=== PATIENT | male | born 1965 ===

== ENCOUNTER 2020-02-05 13:03 | Outpatient (REF) | payer OTHER, SELFPAY | END 2020-02-05 13:04 | disposition home or self-care (01) | LOC: HO.LAB 13:03 | PROVIDERS: Visit Provider Internal Medicine | DX: Z20.828 Contact with and (suspected) exposure to other viral communicable diseases (principal) | CPT/HCPCS: C9803; U0003 ==

== ENCOUNTER 2020-02-23 15:57 | Outpatient (REF) | payer OTHER, SELFPAY | END 2020-02-23 15:58 | disposition home or self-care (01) | LOC: HO.LAB 15:57 | PROVIDERS: PCP Internal Medicine; Visit Provider Internal Medicine | DX: Z20.828 Contact with and (suspected) exposure to other viral communicable diseases (principal) | CPT/HCPCS: C9803; U0003 ==

== ENCOUNTER 2020-03-08 13:21 | Outpatient (REF) | payer OTHER, SELFPAY | END 2020-03-08 13:22 | disposition home or self-care (01) | LOC: HO.LAB 13:21 | PROVIDERS: PCP Internal Medicine; Visit Provider Internal Medicine | DX: Z20.828 Contact with and (suspected) exposure to other viral communicable diseases (principal) | CPT/HCPCS: C9803; U0003 ==

== ENCOUNTER 2020-03-21 08:07 | Outpatient (REF) | payer OTHER, SELFPAY | END 2020-03-21 08:08 | disposition home or self-care (01) | LOC: HO.LAB 08:07 | PROVIDERS: Visit Provider Internal Medicine | DX: Z20.822 Contact with and (suspected) exposure to COVID-19 (principal) | CPT/HCPCS: 36415; C9803; U0003 ==

== ENCOUNTER 2020-04-02 07:51 | Outpatient (REF) | payer OTHER, SELFPAY | END 2020-04-02 07:52 | disposition home or self-care (01) | LOC: HO.LAB 07:51 | PROVIDERS: PCP Internal Medicine; Visit Provider Internal Medicine | DX: Z20.822 Contact with and (suspected) exposure to COVID-19 (principal) | CPT/HCPCS: 36415; C9803; U0003 ==

== ENCOUNTER 2020-05-10 15:13 | Outpatient (REF) | payer OTHER, SELFPAY | END 2020-05-10 15:14 | disposition home or self-care (01) | LOC: HO.LAB 15:13 | PROVIDERS: Visit Provider Internal Medicine | DX: Z20.822 Contact with and (suspected) exposure to COVID-19 (principal) | CPT/HCPCS: 36415; C9803; U0003; U0005 ==

== ENCOUNTER 2020-05-24 14:53 | Outpatient (REF) | payer OTHER, SELFPAY | END 2020-05-24 14:54 | disposition home or self-care (01) | LOC: HO.LAB 14:53 | PROVIDERS: Visit Provider Internal Medicine | DX: Z20.822 Contact with and (suspected) exposure to COVID-19 (principal) | CPT/HCPCS: 36415; C9803; U0003; U0005 ==

== ENCOUNTER 2020-10-25 10:47 | Outpatient (REF) | payer OTHER, SELFPAY | END 2020-10-25 10:48 | disposition home or self-care (01) | LOC: HO.LAB 10:47 | PROVIDERS: PCP Internal Medicine; Visit Provider Internal Medicine | DX: Z20.822 Contact with and (suspected) exposure to COVID-19 (principal) | CPT/HCPCS: C9803; U0003; U0005 ==

== ENCOUNTER 2020-11-29 14:58 | Outpatient (REF) | payer OTHER, SELFPAY | END 2020-11-29 14:59 | disposition home or self-care (01) | LOC: HO.LAB 14:58 | PROVIDERS: PCP Internal Medicine; Visit Provider Internal Medicine | DX: Z20.822 Contact with and (suspected) exposure to COVID-19 (principal) | CPT/HCPCS: C9803; U0003; U0005 ==

== ENCOUNTER 2020-12-06 14:55 | Outpatient (REF) | payer OTHER, SELFPAY | END 2020-12-06 14:56 | disposition home or self-care (01) | LOC: HO.LAB 14:55 | PROVIDERS: PCP Internal Medicine; Visit Provider Internal Medicine | DX: Z20.822 Contact with and (suspected) exposure to COVID-19 (principal) | CPT/HCPCS: C9803; U0003; U0005 ==

== ENCOUNTER 2020-12-13 15:01 | Outpatient (REF) | payer OTHER, SELFPAY | END 2020-12-13 15:02 | disposition home or self-care (01) | LOC: HO.LAB 15:01 | PROVIDERS: PCP Internal Medicine; Visit Provider Internal Medicine | DX: Z20.822 Contact with and (suspected) exposure to COVID-19 (principal) | CPT/HCPCS: C9803; U0003; U0005 ==

== ENCOUNTER 2020-12-20 14:20 | Outpatient (REF) | payer OTHER, SELFPAY | END 2020-12-20 14:21 | disposition home or self-care (01) | LOC: HO.LAB 14:20 | PROVIDERS: PCP Internal Medicine; Visit Provider Internal Medicine | DX: Z20.822 Contact with and (suspected) exposure to COVID-19 (principal) | CPT/HCPCS: C9803; U0003; U0005 ==

== ENCOUNTER 2020-12-26 15:17 | Outpatient (REF) | payer OTHER, SELFPAY | END 2020-12-26 15:18 | disposition home or self-care (01) | LOC: HO.LAB 15:17 | PROVIDERS: PCP Internal Medicine; Visit Provider Internal Medicine | DX: Z20.822 Contact with and (suspected) exposure to COVID-19 (principal) | CPT/HCPCS: C9803; U0003; U0005 ==

== ENCOUNTER 2021-01-03 14:49 | Outpatient (REF) | payer OTHER, SELFPAY | END 2021-01-03 14:50 | disposition home or self-care (01) | LOC: HO.LAB 14:49 | PROVIDERS: PCP Internal Medicine; Visit Provider Internal Medicine | DX: Z20.822 Contact with and (suspected) exposure to COVID-19 (principal) | CPT/HCPCS: C9803; U0003; U0005 ==

== ENCOUNTER 2021-01-09 12:50 | Outpatient (REF) | payer OTHER, SELFPAY | END 2021-01-09 12:51 | disposition home or self-care (01) | LOC: HO.LAB 12:50 | PROVIDERS: PCP Internal Medicine; Visit Provider Internal Medicine | DX: Z20.822 Contact with and (suspected) exposure to COVID-19 (principal) | CPT/HCPCS: C9803; U0003; U0005 ==

== ENCOUNTER 2021-01-16 15:14 | Outpatient (REF) | payer OTHER, SELFPAY | END 2021-01-16 15:15 | disposition home or self-care (01) | LOC: HO.LAB 15:14 | PROVIDERS: Visit Provider Internal Medicine | DX: Z20.822 Contact with and (suspected) exposure to COVID-19 (principal) | CPT/HCPCS: C9803; U0003; U0005 ==

== ENCOUNTER 2021-01-24 14:54 | Outpatient (REF) | payer OTHER, SELFPAY | END 2021-01-24 14:55 | disposition home or self-care (01) | LOC: HO.LAB 14:54 | PROVIDERS: PCP Internal Medicine; Visit Provider Internal Medicine | DX: Z20.822 Contact with and (suspected) exposure to COVID-19 (principal) | CPT/HCPCS: C9803; U0003; U0005 ==

== ENCOUNTER 2021-01-30 13:27 | Outpatient (REF) | payer OTHER, SELFPAY | END 2021-01-30 13:28 | disposition home or self-care (01) | LOC: HO.LAB 13:27 | PROVIDERS: PCP Internal Medicine; Visit Provider Internal Medicine | DX: Z20.822 Contact with and (suspected) exposure to COVID-19 (principal) | CPT/HCPCS: C9803; U0003; U0005 ==

== ENCOUNTER 2021-02-07 14:50 | Outpatient (REF) | payer OTHER, SELFPAY | END 2021-02-07 14:51 | disposition home or self-care (01) | LOC: HO.LAB 14:50 | PROVIDERS: PCP Internal Medicine; Visit Provider Internal Medicine | DX: Z20.822 Contact with and (suspected) exposure to COVID-19 (principal) | CPT/HCPCS: C9803; U0003; U0005 ==

== ENCOUNTER 2021-02-14 15:11 | Outpatient (REF) | payer OTHER, SELFPAY | END 2021-02-14 15:12 | disposition home or self-care (01) | LOC: HO.LAB 15:11 | PROVIDERS: Visit Provider Internal Medicine | DX: Z20.822 Contact with and (suspected) exposure to COVID-19 (principal) | CPT/HCPCS: C9803; U0003; U0005 ==

== ENCOUNTER 2022-01-12 15:06 | Outpatient (REF) | payer OTHER, SELFPAY ==
--- NOTE | ~2022-01-12 | CT_ITS ---
EXAMINATION: CT CHEST SCREENING CLINICAL INFORMATION: Former smoker. 44 pack year history. Quit 1 year ago. COMPARISON: Previous chest x-ray most recent March 2018 TECHNIQUE: Multidetector volumetric CT imaging of the chest is performed without contrast using low dose technique. Additional 2D coronal and sagittal reformatted images and axial 3D maximum intensity projection (MIP) images are generated on the CT workstation. This CT examination was performed using dose optimization techniques as appropriate, variously including the following: *Automated exposure control *Adjustment of mA and/or kV according to patient size (this includes techniques or standardized protocols for targeted exams where dose is matched to indication/reason for exam; i.e. extremities or head) *Use of iterative reconstruction technique DLP: 59 mGy-cm FINDINGS: LUNGS: Mild paraseptal emphysema. 2 x 5 mm MEDIASTINUM: Small calcified left hilar and subcarinal mediastinal lymph nodes. No enlarged lymph nodes. Normal heart size. No pericardial effusion. Normal caliber thoracic aorta. CORONARY ARTERY CALCIFICATION: Mild. . PLEURA: There is no pleural effusion. No pleural mass or thickening. AXILLA: No lymphadenopathy. UPPER ABDOMEN: 1 cm low-attenuation lesion in the lateral segment of the left lobe of the liver. This may represent a cyst. OSSEOUS STRUCTURES: Mild degenerative changes of the spine. CT/CT lung screening IMPRESSION: 1. Mild paraseptal emphysema. Small calcified left hilar and mediastinal lymph nodes probably representing old granulomatous disease. Mild coronary artery calcification. 2. 1 cm low-attenuation lesion in the lateral segment of the left lobe of the liver. ASSESSMENT: Lung-RADS category 2: Benign RECOMMENDATION: Annual low-dose chest CT follow-up recommended.
== END 2022-01-12 15:07 | disposition home or self-care (01) ==
LOC: HO.CT 15:06
PROVIDERS: PCP Internal Medicine; Visit Provider Physician Assistant Medical
DX: Z12.2 Encounter for screening for malignant neoplasm of respiratory organs (principal); Z87.891 Personal history of nicotine dependence
CPT/HCPCS: 71271; G0296

== ENCOUNTER 2022-01-23 15:25 | Outpatient (REF) | payer OTHER, SELFPAY ==
--- NOTE | 2022-01-23 17:27 | PFT_ITS ---
FLOWS: FEV1 75% of predicted at 3.15 L. FVC 74% of predicted at 3.89 L. FEV1 to FVC ratio of 0.81. No bronchodilator response. LUNG VOLUMES: Total lung capacity 77% of predicted at 5.92 L. Residual volume 85% of predicted at 2.02 L. Slow vital capacity 74% of predicted at 3.90 L. Expiratory reserve volume 32% of predicted at 0.52 L. Diffusion capacity is mildly decreased, diffusion capacity corrects to normal after adjustment for alveolar ventilation. IMPRESSION: Moderate restrictive ventilatory defect with no bronchodilator response. Westley Delacruz MD AP/MODL / [id number]
== END 2022-01-23 15:26 | disposition home or self-care (01) ==
LOC: HO.RESP 15:25
PROVIDERS: PCP Internal Medicine; Visit Provider Internal Medicine Pulmonary Disease
DX: J44.9 Chronic obstructive pulmonary disease, unspecified (principal)
CPT/HCPCS: 94060; 94727; 94729

== ENCOUNTER 2022-05-01 06:08 | Day surgery (SDC) | payer OTHER, SELFPAY ==
[2022-05-01 06:14] VITALS: BMI 28.0
[2022-05-01 06:28] VITALS: BP 138/80; PULSE 50; RESP 16; TEMP 36.1; O2SAT 99
--- NOTE | 2022-05-01 07:21 | P.CONAN_ITS ---
HPI - Anesthesia Eval Consult details Narrative: 56 yr male for colon polyp screen [facility] Active Problems Active Problems: All Active Problems (Updated 02/19/22 @ 15:53 by Westley Delacruz MD) Pulmonary emphysema (Acute) Preop pulmonary/respiratory exam (Acute) Personal history of nicotine dependence (Acute) CAD (coronary artery disease) (Acute) History of colon polyps (Acute) Past Medical History Medical History (Updated 02/19/22 @ 15:53 by Westley Delacruz MD) Asthma BPH (benign prostatic hyperplasia) CAD (coronary artery disease) DUVAL (dyspnea on exertion) Elevated cholesterol Gout History of colon polyps Hx of myocardial infarction Hx of seasonal allergies Hx of syphilis Hypertension IFG (impaired fasting glucose) Major depression Personal history of nicotine dependence Family History Family History (Updated 12/11/21 @ 14:47 by Shanique Hong [facility]) Maternal Grandmother Colon cancer Family history of problems with anesthesia: No Surgical History Surgical History (Updated 01/12/22 @ 14:59 by Morena Hoyt PA-C) History of colonoscopy History of heart artery stent History of Problems with Anesthesia: No Social History Social History (Updated 01/12/22 @ 14:56 by Morena Hoyt PA-C) Household Members Other:: mother Alcohol intake: current Alcohol intake frequency: holidays/special occasions only Patient Tobacco Use Status: Former Tobacco user Quit Date: 11/07/2020 Tobacco use type: Cigarette Years Smoked: (former smoker - onset 12, 1ppd x 43yrs, 40pyh, quit 10/2020) Use of substances other than those prescribed or required for medical reasons: No Are you DNR?: No Advance Directives: No Advance Directives Information Provided: Yes Advance Directives on File: No Meds Allergies Allergy/AdvReac Type Severity Reaction Status Date / Time No Known Allergies Allergy Verified 02/19/22 14:54 [No Known Allergies*] Home Medications Medication Instructions Recorded Confirmed Last Taken Type allopurinol 300 mg tablet 300 mg PO DAILY 12/11/21 05/01/22 05/01/22 History aspirin 81 mg tablet,delayed 81 mg PO DAILY 12/11/21 05/01/22 04/29/22 History release clopidogrel 75 mg tablet 75 mg PO DAILY 12/11/21 05/01/22 04/27/22 History loratadine 10 mg tablet 10 mg PO DAILY PRN Allergy Symptoms 12/11/21 05/01/22 04/30/22 History metoprolol tartrate 25 mg tablet 25 mg PO BID 12/11/21 05/01/22 05/01/22 History rosuvastatin 5 mg tablet 5 mg PO BEDTIME 12/11/21 05/01/22 04/30/22 History terbinafine HCl 250 mg tablet 250 mg PO DAILY 12/11/21 05/01/22 04/30/22 History triamcinolone acetonide 0.1 % topical BID 12/11/21 12/11/21 Unknown History topical ointment Exam Exam Date and Time: May 01, 2022720 Height,Weight and Vital Signs: Height 6 ft 1 in Weight 96.615 kg Last Vital Signs Temp 97.0 F 05/01/22 06:28 Pulse 50 05/01/22 06:28 Resp 16 05/01/22 06:28 BP 138/80 05/01/22 06:28 Pulse Ox 99 05/01/22 06:28 O2 Del Method 05/01/22 06:28 Airway Mallampati Class: II TM Dist: >3cm Neck ROM: Full Denture: Upper and Lower Heart: rrr Lungs: cta Assessment and Plan Assessment Anesthesia Assessment: Anesthesia Plan Discussed and Chart Reviewed Final Anesthetic Review Family History of Problems with Anesthesia: No History of Problems with Anesthesia: No NPO: Yes ASA Class: III Final Preanesthetic Review: No Changes in Pt Med Stat, Meds/Allgs Chart Reviewed, Consent Obtained/Reviewed and Anes Risks/Benef Reviewed Patient Risk: Low Procedure Risk: Low Anesthetic Plan Anesthetic Plan: MAC: Disposition: Standard PACU
--- NOTE | 2022-05-01 07:28 | P.HPSUR_ITS ---
Pre-Procedural Eval Section A Date of Service: 05/01/22 Section B Chief Complaint: Personal history of colonic polyps Details of Present Illness: has hx of polyps , here for ffup colonoscopy Relevant Social History: Tobacco Use Present Medications: see Short Stay Collaborative assessment Medical History: Significant History (CAD, emphysema, smoker) Allergies: Allergies Allergy/AdvReac Type Severity Reaction Status Date / Time No Known Allergies Allergy Verified 02/19/22 14:54 [No Known Allergies*] Review of Systems Sugical H&P ROS: Negative: Constitution, Cardiovascular, Respiratory, Neurological, Psychiatric, Hem-Onc, Allergic/Immunologic, Gastrointestinal, Genitourinary, Musculoskeletal, Integumentary, Endocrine and Eyes/Ears/Nose/Throat Exam Surgical H&P Exam: Normal: HEENT, Normal: Heart, Normal: Lungs, Normal: E xtremities, Normal: Abdomen, Normal: Skin and Normal: Neurological Plan Diagnosis/Plan: Unchanged I have reviewed the history and physical and performed a pertinent physical examination on my patient. No changes have occurred unless specified. Time Spent With Patient Time: Total time managing care of this patient today ____ minutes.
--- NOTE | 2022-05-01 07:58 | W.PM.OPN ---
Operative Note Operative Note Date of Service: 05/01/22 Narrative: Preop diagnosis: History of colon polyps Postop diagnosis: 1. flat polyp, about 5 mm, in the cecum, removed with multiple bites of the cold forceps 2. large external hemorrhoid Procedure: Colonoscopy with polypectomy using cold forceps x1 Surgeon: Billy Tate MD The patient is a 56-year-old male who had previous colonoscopy with findings of polyps. I had scheduled him for short interval follow-up colonoscopy. He understood the technique of this procedure as well as the risks, benefits, and alternatives. he patient was brought to the operating room and placed in left lateral decubitus position under monitored anesthesia care. A surgical time-out was done. A full digital rectal exam was done and this did not reveal any significant anal lesions except for 1 relatively large external column. The tip of the Olympus colonoscope was gently introduced through the anal orifice advanced with insufflation all the way to the cecum. The cecum was intubated. The cecum was identified by visualization of the ileocecal valve as well as the appendiceal orifice. There was note of a relatively flat polyp in the cecum, measuring about 5 mm in size. The was removed using multiple bites of the cold forceps. The scope was gradually withdrawn with careful examination of the entire colonic mucosa being done with scope withdrawal. The patient had adequate bowel prep so it was unlikely that any lesion may have been missed. The rectum was reached and there were no lesions seen. The anal canal was unremarkable Except for an external hemorrhoidal column. The scope was then withdrawn completely with desufflation The patient tolerated the procedure well. There were no immediate complications. Depending on the path report, I may recommend a repeat colonoscopy in the next 3-5 years.
[2022-05-01 08:05] VITALS: BP 93/56; PULSE 48; RESP 17; TEMP 36.5; O2SAT 100
[2022-05-01 08:23] VITALS: BP 129/78; PULSE 44; RESP 18; TEMP 36.1; O2SAT 97
== END 2022-05-01 09:08 | disposition home or self-care (01) ==
PROVIDERS: PCP Internal Medicine; Visit Provider Surgery
PROC: 0DJD8ZZ Inspection of Lower Intestinal Tract, Via Natural or Artificial Opening Endoscopic (ICD-10-PCS; CPT 45378; principal; 2022-05-01 07:30)
DX: Z12.11 Encounter for screening for malignant neoplasm of colon (principal); Z86.010 Personal history of colon polyps; D12.0 Benign neoplasm of cecum; K64.8 Other hemorrhoids; K64.4 Residual hemorrhoidal skin tags; K59.00 Constipation, unspecified; I25.10 Atherosclerotic heart disease of native coronary artery without angina pectoris; I25.2 Old myocardial infarction; Z98.61 Coronary angioplasty status; I10 Essential (primary) hypertension; E78.00 Pure hypercholesterolemia, unspecified; J43.9 Emphysema, unspecified; J45.909 Unspecified asthma, uncomplicated; Z79.01 Long term (current) use of anticoagulants; Z79.82 Long term (current) use of aspirin; Z79.899 Other long term (current) drug therapy; Z87.891 Personal history of nicotine dependence
CPT/HCPCS: 45380; 88305

== ENCOUNTER 2022-10-17 09:30 | Outpatient (REF) | payer OTHER, SELFPAY ==
[2022-10-17 12:08] LABS: Alanine Aminotransferase 45 U/L (0-40); Albumin Level 4.1 g/dL (3.5-5.0); Alkaline Phosphatase 86 U/L (39-117); Anion Gap 11 (12-20); Aspartate Amino Transferase 34 U/L (5-37); Bilirubin Direct 0.4 mg/dL (0.0-0.5); Bilirubin Total 0.8 mg/dL (0.0-1.0); Blood Urea Nitrogen 11 mg/dL (9-16); Calcium 9.5 mg/dL (8.4-10.2); Carbon Dioxide 27 mmol/L (22-29); Chloride 109 mmol/L (96-108); Estimated Glomerular Filt Rate > 60; Glucose Random 92 mg/dL (60-115); Potassium 4.2 mmol/L (3.3-5.1); Sodium 143 mmol/L (135-145); Total Protein 6.8 g/dL (6.5-8.0)
[2022-10-17 12:21] LABS: Cholesterol 131 mg/dL; HDL Cholesterol 65 mg/dL; LDL Cholesterol Calculated 48 mg/dl; Triglycerides 91 mg/dL
[2022-10-17 14:42] LABS: Reflex LDLD? No
[2022-10-17 15:53] LABS: Syphilis Screen Reactive (Nonreactive)
[2022-10-25 11:55] LABS: RPR Quantitative Reactive 1:4 (Nonreactive)
[2022-10-25 11:56] LABS: T.Pallidum Particle Agg Test Reactive (Nonreactive)
== END 2022-10-17 09:31 | disposition home or self-care (01) ==
LOC: HO.HHCL 09:30
PROVIDERS: Visit Provider Internal Medicine
DX: E78.1 Pure hyperglyceridemia (principal); K76.9 Liver disease, unspecified; R73.02 Impaired glucose tolerance (oral); Z86.19 Personal history of other infectious and parasitic diseases
CPT/HCPCS: 36415; 80048; 80061; 80076; 86592; 86780

== ENCOUNTER 2023-10-01 15:13 | Outpatient (REF) | payer OTHER, SELFPAY ==
--- NOTE | ~2023-10-01 | XR_ITS ---
EXAMINATION: XR CHEST CLINICAL INFORMATION: Mild emphysema, cough COMPARISON: CT lung screening 01/12/2022 TECHNIQUE: 2 views of the chest were obtained. FINDINGS: Cardiomediastinal silhouette is mildly enlarged, stable. Mild hyperexpansion of the lungs without consolidation, pleural effusion or pneumothorax. No acute osseous abnormalities. XR/XR chest 2V IMPRESSION: No acute process. Hyperexpanded lungs.
== END 2023-10-01 15:14 | disposition home or self-care (01) ==
LOC: HO.HHCX 15:13
PROVIDERS: Visit Provider Internal Medicine
DX: J43.9 Emphysema, unspecified (principal)
CPT/HCPCS: 71046

== ENCOUNTER 2023-10-07 08:57 | Outpatient (REF) | payer OTHER, SELFPAY ==
[2023-10-07 12:10] LABS: Alanine Aminotransferase 60 U/L (0-40); Albumin Level 4.4 g/dL (3.5-5.0); Alkaline Phosphatase 89 U/L (39-117); Anion Gap 11 (12-20); Aspartate Amino Transferase 43 U/L (5-37); Bilirubin Total 1.1 mg/dL (0.0-1.0); Blood Urea Nitrogen 20 mg/dL (9-16); Calcium 9.8 mg/dL (8.4-10.2); Carbon Dioxide 27 mmol/L (22-29); Chloride 109 mmol/L (96-108); Cholesterol 130 mg/dL (<200); Estimated Glomerular Filt Rate > 60; Glucose Random 83 mg/dL (60-115); HDL Cholesterol 70 mg/dL (>40); LDL Cholesterol Calculated 40 mg/dL (<100); Potassium 4.8 mmol/L (3.3-5.1); Sodium 142 mmol/L (135-145); Total Protein 7.3 g/dL (6.5-8.0); Triglycerides 104 mg/dL (<150)
== END 2023-10-07 08:58 | disposition home or self-care (01) ==
LOC: HO.HHCL 08:57
PROVIDERS: Visit Provider Internal Medicine
DX: I25.10 Atherosclerotic heart disease of native coronary artery without angina pectoris (principal)
CPT/HCPCS: 36415; 80053; 80061

== ENCOUNTER 2023-11-06 10:27 | Emergency (ER) | payer OTHER, SELFPAY ==
--- NOTE | ~2023-11-06 | XR_ITS ---
EXAMINATION: XR TOES, LEFT CLINICAL INFORMATION: Status post fall. Great toe pain. COMPARISON: None available. TECHNIQUE: 3 views of the left toes were obtained. FINDINGS: No acute fracture or malalignment.. Mild osteoarthritis of the first MTP joint with small marginal osteophytes and minimal joint space narrowing. Minimal osteoarthritis in the interphalangeal joints. Imaged portion of the midfoot is unremarkable. Mild soft tissue swelling of the great toe. No soft tissue calcifications. No erosions. XR/XR toe LT min 2V IMPRESSION: 1. No acute fracture or malalignment. Mild soft tissue swelling of the great toe. 2. Mild osteoarthritis in the first MTP joint. Electronically signed by: Subhash Ariza MD 11/06/2023 03:26 PM EDT
--- NOTE | ~2023-11-06 | CT_ITS ---
EXAMINATION: CT HEAD WITHOUT CONTRAST CT FACIAL BONES WITHOUT CONTRAST CT CERVICAL SPINE WITHOUT CONTRAST CLINICAL INFORMATION: Fall COMPARISON: None. TECHNIQUE: Imaging was performed from the skull base to vertex without intravenous administration of contrast. In addition, helical noncontrast CT imaging was acquired through the cervical spine and facial bones and source images were reviewed along with axial reconstructions and sagittal and coronal MPRs. This CT examination was performed using dose optimization techniques as appropriate, variously including the following: * Automated exposure control * Adjustment of mA and/or kV according to patient size (this includes techniques or standardized protocols for targeted exams where dose is matched to indication/reason for exam; i.e. extremities or head) Use of iterative reconstruction technique DLP: 1279 mGy-cm FINDINGS: Head: Small amount of acute subarachnoid hemorrhage along the left central sulcus, 3:59 through 67. No acute intraparenchymal hematoma or edematous territorial infarction. Tracy-white matter differentiation appears preserved. The ventricles and cortical sulci are proportional with mild volume loss. No significant chronic microangiopathic changes. There is no mass effect or midline shift. No obstructive hydrocephalus. No displaced calvarial fractures. The mastoids are well-aerated. Maxillofacial Bones: There is a lobulated hyperdense soft tissue measuring approximately 1.6 x 1 cm with a density of approximately 75 Hounsfield units in the subcutaneous soft tissues of the right face overlying the right maxilla, 3:130 likely representing a hematoma with extensive surrounding fat stranding. No evidence of maxillofacial bone fractures. The zygomatic arches remain intact. No nasal bone fracture. The nasal septum is mildly deviated to the right. No evidence of mandibular or maxillary fracture. The mandibular condyles remain well-seated in their respective temporal articular grooves. Normal appearance of the intraconal and extraconal fat. No evidence of traumatic injury to the extraocular musculature or globes. Mild paranasal sinus mucosal thickening. Aerosolized secretions within the left compartment of the sphenoid sinus. Cervical Spine: The atlantooccipital and atlantoaxial articulations remain well aligned. Degenerative changes at the atlantodental articulations. Straightening of the normal cervical lordosis. The cervical vertebral bodies demonstrate normal height. Minimal retrolisthesis of C4 over C5 and C5 over C6. Degenerative endplate osteophytes at C3-C4 through C5-C6 with mild intervertebral disc space narrowing. No evidence of acute fracture or traumatic subluxation. There is no prevertebral soft tissue swelling. The thyroid gland and remaining cervical soft tissues are within normal limits. The lung apices demonstrate no abnormalities. CT/CT cervical spine wo IV con IMPRESSION: 1. Small amount of acute subarachnoid hemorrhage along the left central sulcus. No mass effect or midline shift. 2. Small hematoma within the subcutaneous soft tissues of the right face overlying the right maxilla with extensive surrounding fat stranding. No definite acute maxillofacial fractures. 3. No acute fracture or traumatic subluxation involving the cervical spine. Mild degenerative changes as detailed. This critical result was discussed with Dr. Garcia on 11/06/2023 at 1:23 pm and it was ascertained that the content and urgency of the report was understood at the time of direct communication. Electronically signed by: Kuldeep Pino MD 11/06/2023 01:29 PM EDT
[2023-11-06 10:30] VITALS: BP 178/93; PULSE 56; RESP 17; TEMP 36.6; O2SAT 98; BMI 27.8
--- NOTE | 2023-11-06 10:33 | ECG_ITS ---
Test Reason : DIZZINESS Blood Pressure : / mmHG Vent. Rate : 051 BPM Atrial Rate : 051 BPM P-R Int : 196 ms QRS Dur : 090 ms QT Int : 422 ms P-R-T Axes : 038 008 005 degrees QTc Int : 388 ms Sinus bradycardia Possible Inferior infarct , age undetermined Abnormal ECG When compared with ECG of 21-MAY-2007 06:49, Borderline criteria for Inferior infarct are now Present T wave inversion now evident in Inferior leads Referred By: Generic ED Physician Electronically Signed By:MEHRDAD AVELAR
[2023-11-06 11:14] LABS: MANUAL DIFF FLAG NO
[2023-11-06 11:18] LABS: Basophils Percent Auto 0.4 % (0-2); Eosinophils Absolute Auto 0.1 X10*3/uL (0.0-0.4); Eosinophils Percent Auto 0.9 % (0-4); Hematocrit 40.9 % (42.0-52.0); Hemoglobin 14.6 g/dl (14.0-18.0); Imm Gran Abs Auto 0.02 X10*3/uL (0.00-0.03); Imm Gran Pct Auto 0.4 % (0.0-0.4); Lymphocytes Absolute Auto 1.1 X10*3/uL (1.2-4.9); Lymphocytes Percent Auto 19.2 % (20-40); Mean Corpuscular HGB Conc 35.7 g/dl (31.0-36.0); Mean Corpuscular Hemoglobin 32.2 pg (27.0-33.0); Mean Corpuscular Volume 90.3 fL (80.0-98.0); Mean Platelet Volume 9.1 fL (9.4-12.4); Monocytes Absolute Auto 0.5 X10*3/uL (0.1-1.2); Neutrophils Absolute Auto 3.9 x10*3/uL (2.0-8.3); Neutrophils Percent Auto 70.1 % (45-73); Platelet Count 147 X10*3/uL (160-400); Red Blood Count 4.53 X10*6/uL (4.60-5.80); Red Cell Distribution Width 12.6 % (11.0-16.0); White Blood Count 5.5 X10*3/uL (4.8-10.8)
[2023-11-06 11:30] LABS: Anion Gap 11 (12-20); Blood Urea Nitrogen 16 mg/dL (9-16); Calcium 9.5 mg/dL (8.4-10.2); Carbon Dioxide 23 mmol/L (22-29); Chloride 109 mmol/L (96-108); Creatinine Clr Calc Pharmacy 105.7; Estimated Glomerular Filt Rate > 60; Glucose Random 102 mg/dL (60-115); Potassium 4.2 mmol/L (3.3-5.1); Sodium 139 mmol/L (135-145)
[2023-11-06 11:39] LABS: Troponin-I High Sensitivity < 2.7 ng/L (<3.5-35.0)
[2023-11-06 11:48] VITALS: BP 160/88; PULSE 51; RESP 20; TEMP 36.3; O2SAT 95
--- NOTE | 2023-11-06 12:14 | ED.FALL ---
HPI - Fall General Chief Complaint: Fall Stated Complaint: fall, high bp Time Seen by Provider: 11/06/23 11:38 Source: patient and RN notes reviewed Mode of arrival: ambulatory Limitations: no limitations History of Present Illness ED Provider: Gaviota Tamez PA-C HPI Narrative: This is a 58-year-old male, with hx of hyperlipidemia, HTN, and gout, who presents emergency department with complaints of headache s/p head strike after fall which occurred today at approximately 9:30AM this morning. Patient states that while he was at work, he was running and felt dizzy as he believes he was running to hard and fell, landing onto his right side striking his face on the pavement. He denies loss of consciousness. He is reporting right-sided facial pain, headache, and left great toe pain. He went to the nurse and he had his blood pressure taken, which was elevated. He states that he was told to come to the emergency room for further evaluation and management. Denies any nausea or vomiting. No changes in vision. He reports that he is not on blood thinners. No other complaints or concerns at this time. MD complaint: fall Onset (ago): day(s) Fall from: standing Fall witnessed: yes, by bystander Place fall occurred: work Loss of consciousness: none Symptoms prior to fall: dizziness Context: tripped/slipped Associated symptoms (after fall): headache and lightheaded Related Data Home Medications ?Medication ?Instructions ?Recorded ?Confirmed allopurinol 300 mg tablet 300 mg PO DAILY 12/11/21 05/01/22 aspirin 81 mg tablet,delayed 81 mg PO DAILY 12/11/21 05/01/22 release clopidogrel 75 mg tablet 75 mg PO DAILY 12/11/21 05/01/22 loratadine 10 mg tablet 10 mg PO DAILY PRN Allergy Symptoms 12/11/21 05/01/22 metoprolol tartrate 25 mg tablet 25 mg PO BID 12/11/21 05/01/22 rosuvastatin 5 mg tablet 5 mg PO BEDTIME 12/11/21 05/01/22 terbinafine HCl 250 mg tablet 250 mg PO DAILY 12/11/21 05/01/22 triamcinolone acetonide 0.1 % topical BID 12/11/21 12/11/21 topical ointment Previous Rx's ?Medication ?Instructions ?Recorded sodium,potassium,mag sulfates 17.5 See Rx Instructions PO .COMPLEX 12/11/21 gram-3.13 gram-1.6 gram oral soln #354 mL (Suprep Bowel Prep Kit) umeclidinium 62.5 mcg/actuation 1 inh inhalation DAILY 30 days #1 01/15/22 blister powder for inhalation ea (Incruse Ellipta) Allergies Allergy/AdvReac Type Severity Reaction Status Date / Time No Known Allergies Allergy Verified 11/06/23 10:32 [No Known Allergies*] Review of Systems Review of Systems: Yes all other systems are reviewed and are negative Constitutional: Constitutional: Reports as per HPI [facility] Past Medical History Medical History (Updated 11/06/23 @ 13:38 by JUSTIN Mcmanus) Personal history of nicotine dependence IFG (impaired fasting glucose) BPH (benign prostatic hyperplasia) Hx of syphilis Hx of myocardial infarction DUVAL (dyspnea on exertion) Asthma Major depression Gout Hx of seasonal allergies Elevated cholesterol Hypertension CAD (coronary artery disease) History of colon polyps Surgical History (Updated 01/12/22 @ 14:59 by Morena Hoyt PA-C) History of colonoscopy History of heart artery stent Family History Family History (Updated 12/11/21 @ 14:47 by Shanique Hong [facility]) Maternal Grandmother Colon cancer Social History Social History (Updated 01/12/22 @ 14:56 by Morena Hoyt PA-C) Household Members Other:: mother Alcohol intake: current Alcohol intake frequency: holidays/special occasions only Patient Tobacco Use Status: Former Tobacco user Tobacco use type: Cigarette Years Smoked: (former smoker - onset 12, 1ppd x 43yrs, 40pyh, quit 10/2020) Advance Directives: No Do you have a plan to hurt others: No Plan Physical Exam Vital Signs: Vital Signs: Last Vital Signs Temp 98.5 F 11/06/23 14:49 Pulse 53 11/06/23 14:49 Resp 18 11/06/23 14:49 BP 188/92 H 11/06/23 14:49 Pulse Ox 97 11/06/23 14:49 O2 Del Method Room Air 11/06/23 14:49 BMI result Body Mass Index 27.8 Const: General: cooperative, comfortable and no acute distress Orientation/consciousness: patient oriented x3 Limitations: no limitations HEENT: Other: Tenderness palpation along the right maxillary sinuses and right mandible, with palpable hematoma noted. Able to open and close jaw without difficulty. Superficial abrasions and hematoma noted to the right side of the face. Head: Yes normal to inspection, Yes abrasion and No Perry's sign Ears: hearing grossly normal bilaterally and TM's normal bilaterally (No hemotympanum) General nose exam: Normal external nose present Face and sinus: Yes normal facial exam Mouth: Normal oral and palatal mucosa present, oropharynx normal and moist mucous membranes Throat: Yes posterior oropharynx normal and Yes uvula midline Eyes: General: appearance normal, both eyes and all related structures Eyelids: Yes eyelids normal Conjunctivae: conjunctivae normal Sclerae: sclerae normal Pupils: Equal, round and reactive pupils present EOM: EOMs intact bilaterally Neck: Neck: Yes normal visual inspection, Yes full ROM and Yes no lymphadenopathy Lymphatic: no lymphadenopathy noted Chest: Chest palpation & inspection: normal inspection of the chest Resp: Effort & Inspection: normal respiratory effort and able to speak in complete sentences Auscultation: clear to auscultation bilaterally, no crackles, no rales, no rhonchi and no wheezes Cardio: Rate: regular rate Rhythm: regular rhythm Heart sounds: S1 normal heart sound present and S2 normal heart sound present GI: Inspection: Yes normal to inspection Skin: General skin exam: no rashes or lesions noted Trauma: no lacerations or abrasions Wounds: no wounds Neuro: Other: Right-sided facial swelling, with associated right-sided facial droop, but patient has a large hematoma on the right likely contributing to this. Able to puff out cheeks, tongue midline. General: patient oriented x3 and moves all extremities Cranial nerves: Yes Equal, round and reactive pupils present Cognition (Neuro): normal cognition Gait exam (Neuro): Normal gait present Motor exam (neuro): 5/5 motor strength present throughout and Pronator motor function not present Coordination: [id number] test normal Extrem: Other: Right great toe with tenderness palpation along the 1st metatarsal and proximal phalanx. No overlying skin changes, warmth, full range of motion. DP pulses 2+. General: Yes normal to inspection Right upper extremity: normal to inspection Left upper extremity: normal to inspection Right lower extremity: normal to inspection Left lower extremity: normal to inspection NIH Stroke Scale Internal: Initial- Upon Arrival Level of Consciousness: Alert Level of Consciousness Questions: Answers both questions correctly Level of Consciousness Commands: Performs both tasks correctly Best Gaze: Normal Visual: No visual loss Facial Palsy: Partial paralysis (Patient has swelling on the right side of his face, slight right-sided facial droop however unclear whether not this is secondary to large hematoma on the right side of his face) Motor Arm (Right): No drift Motor Arm (Left): No drift Motor Leg (Right): No drift Motor Leg (Left): No drift Limb Ataxia: Absent Sensory: Normal Best Language: No aphasia Dysarthia: Normal Extinction and Inattention: No abnormality Score: 2 Course Reevaluation(s) Reevaluation #1: My supervising physician took the critical result of CT scan revealing a small amount of acute subarachnoid hemorrhage along the left central sulcus, no mass effect or midline shift. There is a small hematoma within the subcutaneous soft tissues on the right face overlying the right maxilla with extensive surrounding fat stranding. Trauma line for [facility] was called, awaiting for call back. Explained to patient with accounts payable assistant at bedside. Time: 13:34 Reevaluation #2: Spoke to Dr. Fields from [facility] ED, who accepts patient for transfer. Recommending nicardipine drip to manage blood pressure as goal is less than 140 systolic. Transfer of care initiated. Time: 14:01 Medications Administered Discontinued Medications Generic Name Dose Route Start Last Admin Trade Name Freq PRN Reason Stop Dose Admin Nicardipine HCl 25 mg/ Sodium 260 mls @ 0 mls/hr 11/06/23 14:00 11/06/23 14:23 Chloride IVCONT 5 mg/hr .Q0M DESIREE 52 mls/hr Administration Protocol Per Protocol Medical Decision Making Medical Decision Making MDM Narrative: This is a 58-year-old male, with a history of CAD, who presents emergency department with complaints of right-sided facial pain after fall which occurred today. It is unclear what caused him to fall, he states that he was dizzy when she attributes to running around however unclear of mechanism. He presents with right-sided facial pain with moderate edema. He does have slight right-sided facial droop, likely secondary to the right sided facial swelling. I discussed this with my attending physician, who evaluated this patient, and given no other neurologic deficits on examination, this is likely due to the swelling. He is neurologically intact. No focal deficits on examination. Blood pressure elevated at 178/93, improved to 160/88 during my assessment. Differential diagnoses include ICH, SDH, ACS Differential Diagnosis Differential Diagnoses: The differential diagnosis associated with the presentation includes See above Admission/Observation Consideration of admission/observation: Escalation of care including admission/observation considered Patient requiring transfer of care secondary to acute subarachnoid hemorrhage in the central sulcus as well as hematoma Lab Data MDM Lab Attestation statement: I reviewed the patient's lab results. No leukocytosis, H&H stable, chemistry with no acute findings. First Troponin less than 2.7. 11/06/23 11:00 11/06/23 11:00 Labs: Lab Results 11/06/23 11/06/23 Range/Units 11:00 12:54 WBC 5.5 (4.8-10.8) X10*3/uL RBC 4.53 L (4.60-5.80) X10*6/uL Hgb 14.6 (14.0-18.0) g/dl Hct 40.9 L (42.0-52.0) % MCV 90.3 (80.0-98.0) fL MCH 32.2 (27.0-33.0) pg MCHC 35.7 (31.0-36.0) g/dl RDW 12.6 (11.0-16.0) % Plt Count 147 L (160-400) X10*3/uL MPV 9.1 L (9.4-12.4) fL Immature Gran % (Auto) 0.4 (0.0-0.4) % Neut % (Auto) 70.1 (45-73) % Lymph % (Auto) 19.2 L (20-40) % [place] % (Auto) 9.0 (2-11) % Eos % (Auto) 0.9 (0-4) % Baso % (Auto) 0.4 (0-2) % Lymph # (Auto) 1.1 L (1.2-4.9) X10*3/uL [place] # (Auto) 0.5 (0.1-1.2) X10*3/uL Eos # (Auto) 0.1 (0.0-0.4) X10*3/uL Baso # (Auto) 0.0 (0.0-0.2) X10*3/uL Abs Immat Gran (auto) 0.02 (0.00-0.03) X10*3/uL Absolute Neuts (auto) 3.9 (2.0-8.3) x10*3/uL Absolute Nucleated RBC 0.000 (0.0-0.012) X10*3/uL Nucleated RBC % (auto) 0.0 (0.0-0.2) /100WBC D-Dimer High Sensitivty 160 NG/ML Sodium 139 (135-145) mmol/L Potassium 4.2 (3.3-5.1) mmol/L Chloride 109 H (96-108) mmol/L Carbon Dioxide 23 (22-29) mmol/L Anion Gap 11 L (12-20) BUN 16 (9-16) mg/dL Creatinine 0.85 (0.5-1.4) mg/dL Estim Creat Clear Calc 105.7 Estimated GFR > 60 Random Glucose 102 (60-115) mg/dL Calcium 9.5 (8.4-10.2) mg/dL Troponin I High Sens < 2.7 (<3.5-35.0) ng/L Independent Interpretation I performed an independent interpretation of an: EKG Interpretation: EKG sinus bradycardic at 51 beats per minute, QT QTC 422/388, no ST elevation or depression. Radiology Impression Discussion of test interpretation with radiology: I have reviewed the radiologist's reading. Radiologist Impression: CT/CT facial bones wo IV con IMPRESSION: 1. Small amount of acute subarachnoid hemorrhage along the left central sulcus. No mass effect or midline shift. 2. Small hematoma within the subcutaneous soft tissues of the right face overlying the right maxilla with extensive surrounding fat stranding. No definite acute maxillofacial fractures. 3. No acute fracture or traumatic subluxation involving the cervical spine. Mild degenerative changes as detailed. This critical result was discussed with Dr. Garcia on 11/06/2023 at 1:23 pm and it was ascertained that the content and urgency of the report was understood at the time of direct communication. Electronically signed by: Kuldeep Pino MD 11/06/2023 01:29 PM EDT Dictated By: Kuldeep Pino Critical Care Time Critical Care Time Critical Care Time: Yes Total Critical Care Time: 60 Attestation: I have personally provided critical care time exclusive of time spent on separately billable procedures. Time includes review of lab data, radiology results, discussion with consultants, and monitoring for potential decompensation. Intervention performed as documented. Discharge Plan Discharge Clinical Impression: Subarachnoid hemorrhage Patient Disposition: [facility] Transfer Details: ED to ED transfer accepting physician Dr. Fields Prescriptions: No Action Incruse Ellipta 62.5 mcg/actuation blister with device 1 inh inhalation DAILY 30 Days Qty: 1 6RF clopidogrel 75 mg tablet 75 mg PO DAILY metoprolol tartrate 25 mg tablet 25 mg PO BID rosuvastatin 5 mg tablet 5 mg PO BEDTIME aspirin 81 mg tablet,delayed release (DR/EC) 81 mg PO DAILY triamcinolone acetonide 0.1 % ointment topical BID loratadine 10 mg tablet 10 mg PO DAILY PRN (Reason: Allergy Symptoms) terbinafine HCl 250 mg tablet 250 mg PO DAILY allopurinol 300 mg tablet 300 mg PO DAILY sodium,potassium,mag sulfates [Suprep Bowel Prep Kit] 17.5-3.13-1.6 gram recon soln See Rx Instructions PO .COMPLEX Qty: 354 0RF Rx Instructions: DILUTE; drink full amount early evening before AND next morning at least 2 hr before procedure; follow w 960 mL water PO Interventions: Acute Care Transfer Worksheet (ED) Last Done: 11/06/23 14:49 Discharge Date/Time: 11/06/23 14:49 Print Language: [place]
[2023-11-06 13:30] LABS: D Dimer High Sensitivity 160 NG/ML
[2023-11-06 14:00] VITALS: BP 180/85; PULSE 51; RESP 18; O2SAT 97
--- NOTE | 2023-11-06 14:05 | PC.NURSE ---
IV inserted. pt alert, oriented. neuros intact. no deficits. right sided facial droop which MD attributes to facial swelling due to fall. Abrasions to right cheek.
[2023-11-06 14:21] VITALS: BP 188/92; PULSE 55; RESP 20; O2SAT 98
[2023-11-06 14:23] VITALS: BP 188/92; PULSE 53
[2023-11-06] MEDS: niCARdipine HCL 25 MG in 0.9 % Sodium Chloride 250 ML 52 MG IVCONT (14:23)
[2023-11-06 14:49] VITALS: BP 188/92; PULSE 53; RESP 18; TEMP 36.9; O2SAT 97
--- NOTE | 2023-11-06 15:05 | PC.NURSE ---
attempted to call [facility] ER to give report, no answer
== END 2023-11-06 14:49 | disposition short-term general hospital (02) ==
PROVIDERS: Physician Assistant Medical; Emergency Provider Emergency Medicine Emergency Medical Services; PCP Internal Medicine
DX: S06.6X0A Traumatic subarachnoid hemorrhage without loss of consciousness, initial encounter (principal); W18.30XA Fall on same level, unspecified, initial encounter; R29.702 NIHSS score 2; Y93.02 Activity, running; Y92.219 Unspecified school as the place of occurrence of the external cause; Y99.0 Civilian activity done for income or pay
CPT/HCPCS: 36415; 70450; 70486; 72125; 73660; 80048; 84484; 85025; 85379; 93005; 99285; J2404

== ENCOUNTER 2024-05-04 14:09 | Outpatient (REF) | payer OTHER, SELFPAY ==
[2024-05-04 15:00] LABS: Alanine Aminotransferase 53 U/L (0-40); Albumin Level 3.9 g/dL (3.5-5.0); Alkaline Phosphatase 98 U/L (39-117); Anion Gap 11 (12-20); Bilirubin Total 0.7 mg/dL (0.0-1.0); Blood Urea Nitrogen 17 mg/dL (9-16); Calcium 9.4 mg/dL (8.4-10.2); Carbon Dioxide 29 mmol/L (22-29); Chloride 109 mmol/L (96-108); Estimated Glomerular Filt Rate > 60; Glucose Random 79 mg/dL (60-115); Potassium 4.4 mmol/L (3.3-5.1); Sodium 145 mmol/L (135-145); Total Protein 7.1 g/dL (6.5-8.0)
--- OUTSIDE RECORDS SUMMARY | 2024-05-04 16:17 | XMS_ITS | Clinical Summary ---
Author Organization [employer] [facility] ity Address [address] [place] [address] Care Team Providers Care Mechanical Process Engineer Name Role Phone Bhargav Louise MD Primary Care Provi susan Medical History Medical History Date Comments Gout DX:Gout Social History Tobacco Use Types Packs/Day Years Used Date Smoking Tobacco: Never Assessed Sex and Gender Information Value Date Recorded Sex Assigned at Not on file Legal Sex Male 10:47 PM EST Gender Identity Not on file Sexual Orientation Not on file Obstetrics History Plan of Treatment Health Maintenance Due Date Last Done Comments DTaP,Tdap,and Td Vaccines (1 - Tdap) 06/16/1983 Hepatitis B Vaccines (1 of 3 - 19+ 3-dose series) 06/16/1983 Pneumococcal Vaccine: 50+ Ye ars (1 of 1 - PCV) 2014 Zoster Vaccines (1 of 2) 2014 COVID-19 Vaccine ( - 2023-2 5 season) 2023 Influenza Vaccine (#1) 2023 RSV Immunization Patients 60 + Years Old (1 - 1-dose 75+ series) 06/16/2039 HIB Vaccines Aged Out No longer eligi ble based on patient's age to complete this topic HPV Vaccines Aged Out No longer eligi ble based on patient's age to complete this topic Hepatitis A Vaccines Aged Out No long er eligible based on patient's age to complete this topic IPV Vaccines Aged Out No longer eligi ble based on patient's age to complete this topic MMR Vaccines Aged Out No longer eligi ble based on patient's age to complete this topic Meningococcal ACWY Vaccine Aged Out N o longer eligible based on patient's age to complete this topic Meningococcal B Vacine Aged Out No lo nger eligible based on patient's age to complete this topic Pneumococcal Vaccine: Pediat rics (0 to 5 Years) and At-Risk Patients (6 to 64 Years) Aged Out No longer eligible b ased on patient's age to complete this topic RSV Immunization Patients Un susan 20 months Aged Out No longer eligible b ased on patient's age to complete this topic Varicella Vaccines Aged Out No longer eligible based on patient's age to complete this topic Care Teams Mechanical Process Engineer Relationship Specialty Start Date End Date Bhargav Louise MD [address] [place] [address] [place] [address] PCP - General Internal Medicine 04/10/12
--- OUTSIDE RECORDS SUMMARY | 2024-05-04 16:17 | XMS_ITS | Continuity of Care Document ---
Author Organization [facility] Address [address] [place] [phone] Phone Care Team Providers Care Financial Center Manager Name Role Phone Shannan Hi MD Unavailable Unavailable Medications Medication Instructions Dosage Effective Dates (start - stop) Status Comments Rapaflo 8 mg capsule one pill po q hs - Active samples ATORVASTATIN CALCIUM (unknown strength) Not Available - Active AMITRIPTYLINE HCL (unknown strength) Not Available - Active GLIMEPIRIDE (unknown strength) Not Available - Active METFORMIN HCL (unknown strength) Not Available - Active Procedures Procedure Date Us Urine Capacity Measure OV - Established Patient Venipuncture Urinalysis - Automated PSA Postop F/u Visit Incld Global 4 Urinalysis - Automated Circ (>28 Days Old) Initial Hosp Care - Mod Advance Directives Directive Yes / No Effective Date File Name No Information Encounters Encounter Description Practice Location Reason(s) For Visit Diagnoses Date Provider Providers Copied on Encounter [facility] , [address] [place] [address], [id number], [place] tel:[phone] [facility] No Information May- 6 Kolton Campbell. [address] [place] [address], [id number] , [place]. tel:[phone] OV - Established Patient [facility] , [address] [place] [address], [id number], [place] tel:[phone] [facility] Incompl Bladder EmptyingBPH W URINARY OBSTRUCTNSlow Urinary StreamIncompl Bladder EmptyingUnc Behav Jovi Prostate Sep-0 2-201 5 Shaji Bravo. [address] [place] [address], [id number] , [place]. tel:[phone] Referring Provider: Gunner Israel, [address] [place], [address]. tel:[phone] [facility] , [address] [place] [address], [id number], [place] tel:[phone] [facility] Redun Prepuce & PhimosisVascular Disorder, PenisUnspec Male Dis-Scrotal/Test/ Perineal Pain Maxi-2 0-201 4 [facility] Shannan. [address] [place] [address], [address], [place], [id number] , [place]. tel:[phone] Referring Provider: Shannan Hi, [address] [place] [address], [id number] . tel:[phone] [place] [facility] [place] [facility] , [address] [place] [address], [id number], [place] tel:[phone] [facility] Redun Prepuce & PhimosisUnspec Male Dis-Scrotal/Test/ Perineal PainVascular Disorder, Penis Maxi-0 8-201 4 [facility] Shannan. [address] [place] [address], [place], [id number] , [place]. tel:[phone] Referring Provider: Shannan Hi, [address] [place] [address], [place], [address] . tel:[phone] Family History Family Member Type Diagnosis Age At Onset No Information Payers Payer name Insurance type Covered green party ID Authortrinidada giuseppe(s) [place] Medicaid - [facility] [id number] Social History Type Description Quantity Date Captured Comments Sex Male Smoking Status No Information Chief Complaint And Reason For Visit No Information Reason For Referral Reason For Referral No Information History Of Present Illness Encounter Date Complaint History Of Prese nt Illness No Information Functional Status Date Functional Assessmen t No Information Instructions Date Instruction Additional Infor mation No Information Assessments Type Assessment Date No Information Patient Care Teams Name Effective Dates (start - stop) Status Members No Information
[2024-05-04 16:42] LABS: Aspartate Amino Transferase 46 U/L (5-37)
== END 2024-05-04 14:10 | disposition home or self-care (01) ==
LOC: HO.LAB 14:09
PROVIDERS: PCP Internal Medicine; Visit Provider Student in an Organized Health Care Education/Training Program
DX: Z00.00 Encounter for general adult medical examination without abnormal findings (principal)
CPT/HCPCS: 36415; 80053

== ENCOUNTER 2024-07-21 15:23 | Outpatient (REF) | payer OTHER, SELFPAY ==
--- NOTE | ~2024-07-21 | XR_ITS ---
EXAMINATION: XR CHEST 2 VIEWS HISTORY: positive PPD COMPARISON: Comparison is made with the prior examination dated 10/01/2023. FINDINGS: PA and lateral views of the chest are submitted. The lungs are expanded and clear. There is no pleural effusion, pneumothorax, or pulmonary vascular congestion. The heart is normal in size. The bones are intact. XR/XR chest 2V IMPRESSION: No acute cardiopulmonary abnormality. Electronically signed by: Eduard Garcia MD 07/21/2024 03:44 PM EDT
--- OUTSIDE RECORDS SUMMARY | 2024-07-21 16:14 | XMS_ITS | Encounter Summary ---
Author Organization [employer] Address [address] [facility] [address]t [place] [address] Care Team Providers Care Adult Education Teacher Name Role Phone Bhargav Patel MD Primary Care Provide r Reason for Visit * Reason Onset Date Comments Med Refill 11/14/2023 Encounter Details Date Type Department Care Team ([facility] st Contact Info) Description 11/14/2023 Telephone [facility] MEDICINE [address] [place], [place] [phone] Bhargav Patel MD [address] [place], [place] [phone] Med Refill Social History Tobacco Use Types Packs/Day Years Used Date Smoking Tobacco: Former Cigarettes Passive Smoke Exposure: Past Smokeless Tobacco: Never Depression Answer Date Recorded Patient Health Questionnaire-9 Score 2 10/01/2023 Patient Health Questionnaire-9 Score 2 10/01/2023 Last PHQ-9: Questionnaire Data Not on file 0 10/01/2023 Housing Stability Answer Date Recorded What is your housing situation today? I have tobin jones 09/23/[address] you li ve. Do you have problems with any of the following? None of the above 09/23/2023 Food Insecurity Answer Date Recorded Within the past 12 months, y ou worried that your food would run out before you got money to buy more: Sometimes True 2023 Within the past 12 months,th e food you bought just didn't last and you didn't have enough money to get more: Sometimes True 09/23/2023 Transportation Answer Date Recorded In the past 12 months, has l ack of transportation kept you from medical appts, meetings, work or from getting things needed for daily living? No 09/23/2023 Utilities Answer Date Recorded In the past 12 months, has t he electric, gas, oil or water company threatened to shut off services in your home? No 09/23/2023 Depression Answer Date Recorded Patient Health Questionnaire-2 Score 0 10/01/2023 Internet Access Answer Date Recorded Internet Access Q1 Yes 11/08/2023 Internet Access Q2 Not on file 11/08/2023 Sex and Gender Information Value Date Recorded Sex Assigned at Male 01/08/2022 10:15 AM EDT Legal Sex Male 10:15 AM EDT Gender Identity Male 01/08/2022 10:15 AM EDT Sexual Orientation Straight 01/08/2022 10 :15 AM EDT documented as of this encounter Miscellaneous Notes * Telephone Encounter - Kely Jiménez LPN - 11/14/2023 9:06 AM EDT Medication is prescribed by Cardiology please advise patient to contact their office for refill. * Telephone Encounter - Eliseo Wolff - 11/14/2023 8:59 AM EDT TC from pt requesting medication refill. Medications needing refill : rosuvastatin (Crestor) 40 MG tablet To be sent to: [id number] - [place], [place] - [address] [facility] documented in this encounter Plan of Treatment Not on file documented as of this encounter Visit Diagnoses Not on filedocumented in this encounter Additional Health Concerns Assessment Noted Time PHQ-9 Depression Total Score: 2 10/01/19 24 2:12 PM EDT documented as of this encounter Care Teams Adult Education Teacher Relationship Specialty Start Date End Date Bhargav Patel MD [address] [place] [address] PCP - General Internal Medicine 10/26/13 documented as of this encounter
--- OUTSIDE RECORDS SUMMARY | 2024-07-21 16:14 | XMS_ITS | Encounter Summary ---
Author Organization [email or web address] Address [address] [facility] [address] [place] [address] Care Team Providers Care Adult Basic Education Teacher Name Role Phone Bhargav Patel MD Primary Care Provide r Reason for Visit * Reason Comments Med Refill Encounter Details Date Type Department Care Team (Late st Contact Info) Description 09/12/2022 Refill [facility] MEDICINE [address] [place], [place] [phone] Wong Garsia MD [address] [place], [place] [phone] Social History Tobacco Use Types Packs/Day Years Used Date Smoking Tobacco: Former Cigarettes Passive Smoke Exposure: Past Smokeless Tobacco: Never Depression Answer Date Recorded Patient Health Questionnaire-9 Score 2 09/04/2022 Depression Answer Date Recorded Patient Health Questionnaire-2 Score 0 09/04/2022 Sex and Gender Information Value Date Recorded Sex Assigned at Male 01/08/2022 10:15 AM EDT Legal Sex Male 10:15 AM EDT Gender Identity Male 01/08/2022 10:15 AM EDT Sexual Orientation Straight 01/08/2022 10 :15 AM EDT COVID-19 Exposure Response Date Recorded In the last 10 days, have yo u been in contact with someone who was confirmed or suspected to have Coronavirus/COVID-19? No / Unsure 09/04/2022 8:32 AM EDT documented as of this encounter Plan of Treatment Not on file documented as of this encounter Visit Diagnoses Not on filedocumented in this encounter Additional Health Concerns Assessment Noted Time PHQ-9 Depression Total Score: 2 09/05/19 8:59 AM EDT documented as of this encounter Care Teams Adult Basic Education Teacher Relationship Specialty Start Date End Date Bhagrav Patel MD [address] [place] [address] PCP - General Internal Medicine 10/26/13 documented as of this encounter
--- OUTSIDE RECORDS SUMMARY | 2024-07-21 16:14 | XMS_ITS | Encounter Summary ---
Author Organization [employer] Address [address] [facility] [address] [place] [address] Care Team Providers Care Concrete Mixing Plant Laborer Name Role Phone Bhargav Patel MD Primary Care Provide r Encounter Details Date Type Department Care Team (Latest Contact Info) Description 07/21/2024 Travel Social History Tobacco Use Types Packs/Day Years [...] before you got money to buy more: Never True 07/14/2024 Within the past 12 months,th e food you bought just didn't last and you didn't have enough money to get more: Never True 08/2024 Transportation Answer Date Recorded In the past [...] documented as of this encounter Care Teams Concrete Mixing Plant Laborer Relationship Specialty Start Date End Date Bhargav Patel MD [address] [place] [address] PCP - General Internal Medicine 10/26/13 documented as of this encounter
--- OUTSIDE RECORDS SUMMARY | 2024-07-21 16:14 | XMS_ITS | Encounter Summary ---
Author Organization [employer] Address 75 [facility] 7t [place] [address] Care Team Providers Care System Administration Manager Name Role Phone Bhargav Patel MD Primary Care Provide r Encounter Details Date Type Department Care Team ([facility] st Contact Info) Description 07/21/2024 3:00 PM EDT Office Visit [facility] MEDICINE [address] [place], [place] [phone] Bhargav Patel MD [address] [place], [place] [phone] Mild emphysema (CMS/HCC) (Primary Dx); Primary hypertension; Coronary artery disease involving seneca coronary artery of seneca heart without angina pectoris; Mantoux: positive; Hypertriglyceridemia; Routine physical examination Social History Tobacco Use Types Packs/Day Years Used Date Smoking Tobacco: Former Cigarettes Passive Smoke Exposure: Past Smokeless Tobacco: Never Tobacco Cessation:Counseling Given: Not Answered Depression Answer Date Recorded Patient Health Questionnaire-9 [...] AM EDT documented as of this encounter Last Filed Vital Signs Vital Sign Reading Time Taken Comments Blood Pressure 135/78 07/21/2024 2:50 PM EDT Pulse 54 07/21/2024 2:50 PM EDT Temperature 36.1 ??C (96.9 ??F) 07/21/2024 2:50 PM ED T Respiratory Rate 20 07/21/2024 2:50 PM EDT Oxygen Saturation 98% 07/21/2024 2:50 PM EDT Inhaled Oxygen Concentration - - Weight 97.5 kg (215 lb) 07/21/2024 2:50 PM EDT Height 185.4 cm (6' 1 ) 07/21/2024 2:50 PM EDT Body Mass Index 28.37 07/21/2024 2:50 PM EDT documented in this encounter Progress Notes * Bhargav Wolff MD - 07/21/2024 3:00 PM EDT SUBJECTIVE Denis Martinez is a 59 y.o. male who presents for No chief complaint on file.. Patient here for a routine physical exam Review of Systems Constitutional: Negative for appetite change, fatigue and fever. HENT: Negative for ear pain, hearing loss and sore throat. Eyes: Negative for pain and visual disturbance. Respiratory: Negative for cough and shortness of breath. Cardiovascular: Negative for chest pain and palpitations. Gastrointestinal: Negative for abdominal pain, nausea and vomiting. Genitourinary: Negative for dysuria. Skin: Negative for rash. Neurological: Negative for dizziness and headaches. Psychiatric/Behavioral: Negative for sleep disturbance. No Known Allergies OBJECTIVE Vitals: 07/21/24 1450 BP: 135/78 BP Location: Left arm Patient Position: Sitting BP Cuff Size: Adult Pulse: 54 Resp: 20 Temp: 96.9 ??F (36.1 ??C) TempSrc: Temporal SpO2: 98% Weight: 215 lb (97.5 kg) Height: 6' 1 (1.854 m) Physical Exam Vitals reviewed. Constitutional: General: He is not in acute distress. Appearance: Normal appearance. HENT: Head: Normocephalic and atraumatic. Right Ear: Tympanic membrane, ear canal and external ear normal. Left Ear: Tympanic membrane, ear canal and external ear normal. Nose: Nose normal. Mouth/Throat: Mouth: Mucous membranes are moist. Pharynx: Oropharynx is clear. Eyes: Extraocular Movements: Extraocular movements intact. Conjunctiva/sclera: Conjunctivae normal. Pupils: Pupils are equal, round, and reactive to light. Cardiovascular: Rate and Rhythm: Normal rate and regular rhythm. Pulses: Normal pulses. Heart sounds: Normal heart sounds. Pulmonary: Effort: Pulmonary effort is normal. Breath sounds: Normal breath sounds. Abdominal: General: Bowel sounds are normal. Palpations: Abdomen is soft. Genitourinary: Penis: Normal. Testes: Normal. Musculoskeletal: General: Normal range of motion. Cervical back: Normal range of motion and neck supple. Skin: General: Skin is warm. Capillary Refill: Capillary refill takes less than 2 seconds. Neurological: General: No focal deficit present. Mental Status: He is alert and oriented to person, place, and time. Psychiatric: Mood and Affect: Mood normal. Assessment/Plan Problem List Items Addressed This Visit Mild emphysema (CMS/HCC) - Primary Pt here for a follow up doing well today On Albuterol HFA Low dose CT 01/12/2023 Benign aside from mild emphysema. Hypertension Patient here for a follow up BP currently controlled on a regimen of: Metoprolol 25 mg po BID and Amlodipine 2.5 mg po daily off Chlorthalidone Pt's most recent electrolytes, Bun and Creatinine done on: Lab Results Component Value Date NA 145 05/04/2024 NA 139 11/06/2023 K 4.4 05/04/2024 K 4.2 11/06/2023 CL 109 (H) 05/04/2024 CL 109 (H) 11/06/2023 BUN 17 (H) 05/04/2024 BUN 16 11/06/2023 CREATININE 0.89 05/04/2024 CREATININE 0.85 11/06/2023 were wnl. Plan Continue current regimen 4 months f/u with me patient has advised to adhere to a low sodium diet, encouraged about medication compliance, counseled about weight loss. Coronary artery disease involving seneca coronary artery of seneca heart without angina pectoris Hx of NSTEMI Pt is s/p cardiac catheterization on 11/08/20 -RCA 95% occlusion s/p JUSTICE -LAD and LCx are patent -Echo LVEF 60-65%, mild hypokinesis -continue ASA -continue metoprolol tartrate -continue rosurvasatin 40 mg Pt now under the care of [facility] Cardiology, last seen 09/17/2023. 1 year follow up recommended Last ECHO 08/2023 Continue working on smoking cessation and other risk factor management Mantoux: positive Hx of positive PPD Asking for Chest x-ray surveillance Relevant Orders XR Chest 2 Views Hypertriglyceridemia Patient here for a f/u Most recent lipid profile from: Lab Results Component Value Date TRIG 104 10/07/2023 TRIG 91 10/17/2022 CHOL 130 10/07/2023 CHOL 131 10/17/2022 LDLCHOLCAL 40 10/07/2023 LDLCHOLCAL 48 10/17/2022 HDL 70 10/07/2023 HDL 65 10/17/2022 Currently on a regimen Of Rosuvastatin 40 mg Prescribed by Cardiology advised to try to adhere to a low cholesterol diet, counseled and educated about diet and exercise,Patient encouraged to come up with a personal goal for weight loss. Repeat Lipid profile Relevant Orders Lipid Panel, Standard Routine physical examination Exam today within normal limits PSA: 2021 Normal, will repeat Colonoscopy: TA : 07/26/2017, repeat 05/01/2022 showed a polyp, 3 year follow up recommended Dr Billy Anaya Relevant Orders PSA, Screen Hepatitis C Antibody with Reflex to HCV, RNA, Quantitative, Real-Time PCR No future appointments. documented in this encounter Miscellaneous Notes * Assessment & Plan Note - Bhargav Wolff MD - 07/21/2024 3:00 PM EDT Associated Problem(s): Routine physical examination Exam today within normal limits PSA: 2021 Normal, will repeat Colonoscopy: TA : 07/26/2017, repeat 05/01/2022 showed a polyp, 3 year follow up recommended Dr Billy Anaya * Assessment & Plan Note - Bhargav Wolff MD - 07/21/2024 2:59 PM EDT Associated Problem(s): Hypertriglyceridemia Patient here for a f/u Most recent lipid profile from: Lab Results Component Value Date TRIG 104 10/07/2023 TRIG 91 10/17/2022 CHOL 130 10/07/2023 CHOL 131 10/17/2022 LDLCHOLCAL 40 10/07/2023 LDLCHOLCAL 48 10/17/2022 HDL 70 10/07/2023 HDL 65 10/17/2022 Currently on a regimen Of Rosuvastatin 40 mg Prescribed by Cardiology advised to try to adhere to a low cholesterol diet, counseled and educated about diet and exercise,Patient encouraged to come up with a personal goal for weight loss. Repeat Lipid profile * Assessment & Plan Note - Bhargav Wolff MD - 07/21/2024 2:58 PM EDT Associated Problem(s): Mantoux: positive Hx of positive PPD Asking for Chest x-ray surveillance * Assessment & Plan Note - Bhargav Wolff MD - 07/21/2024 2:57 PM EDT Associated Problem(s): Coronary artery disease involving seneca coronary artery of seneca heart without angina pectoris Hx of NSTEMI Pt is s/p cardiac catheterization on 11/08/20 -RCA 95% occlusion s/p JUSTICE -LAD and LCx are patent -Echo LVEF 60-65%, mild hypokinesis -continue ASA -continue metoprolol tartrate -continue rosurvasatin 40 mg Pt now under the care of [facility] Cardiology, last seen 09/17/2023. 1 year follow up recommended Last ECHO 08/2023 Continue working on smoking cessation and other risk factor management * Assessment & Plan Note - Bhargav Wolff MD - 07/21/2024 2:55 PM EDT Associated Problem(s): Hypertension Patient here for a follow up BP currently controlled on a regimen of: Metoprolol 25 mg po BID and Amlodipine 2.5 mg po daily off Chlorthalidone Pt's most recent electrolytes, Bun and Creatinine done on: Lab Results Component Value Date NA 145 05/04/2024 NA 139 11/06/2023 K 4.4 05/04/2024 K 4.2 11/06/2023 CL 109 (H) 05/04/2024 CL 109 (H) 11/06/2023 BUN 17 (H) 05/04/2024 BUN 16 11/06/2023 CREATININE 0.89 05/04/2024 CREATININE 0.85 11/06/2023 were wnl. Plan Continue current regimen 4 months f/u with me patient has advised to adhere to a low sodium diet, encouraged about medication compliance, counseled about weight loss. * Assessment & Plan Note - Bhargav Wolff MD - 07/21/2024 2:54 PM EDT Associated Problem(s): Mild emphysema (CMS/HCC) Pt here for a follow up doing well today On Albuterol HFA Low dose CT 01/12/2023 Benign aside from mild emphysema. documented in this encounter Plan of Treatment Scheduled Orders Name Type Priority Associated Diagnoses Orde r Schedule Lipid Panel, Standard Lab Routine Hypertriglyceridemia Ordered: 07/21/2024 PSA, Screen Lab Routine Routine physical examination Ordered: 07/21/2024 Hepatitis C Antibody with Reflex to HCV, RNA, Quantitative, Real-Time PCR Lab Routine Routine physical examination Expected: 07/21/2024, Expires: 07/21/2025 documented as of this encounter Procedures Procedure Name Priority Date/Time Associated Diagnosis Comments XR CHEST 2 VIEWS Routine 07/21/2024 3:23 PM EDT Mantoux: positive documented in this encounter Results * XR Chest 2 Views (07/21/2024 3:23 PM EDT) Anatomical Region Laterality Modality Chest Radiographic Rosy ging 07/21/2024 3:23 PM EDT Narrative 07/21/2024 3:47 PM EDT ?[facility] ?[address] ?[place] [address] ?XRay Report ? Signed ? Patient: Denis Martinez ?MR#: [id number] ? : 1965 ?Acct:[id number] ? Age/Sex: 59 / M ?ADM Date: 07/21/24 ? Loc: HO.HHCX ? Attending Dr: Bhargav Louise MD ? Ordering Physician: Bhargav Louise MD ?? Date of Service: 07/21/24 ?? Procedure(s): XR chest 2V ?? Accession Number(s): [id number] ? cc: Bhargav Louise MD ? EXAMINATION: ??XR CHEST 2 VIEWS ? HISTORY: positive PPD ? COMPARISON: Comparison is made with the prior examination dated ?? 10/01/2023. ? FINDINGS: ??PA and lateral views of the chest are submitted. The lungs ?? are expanded and clear. ??There is no pleural effusion, pneumothorax, or ?? pulmonary vascular congestion. ??The heart is normal in size. ??The bones ?? are intact. ? XR/XR chest 2V ?? IMPRESSION: ?? No acute cardiopulmonary abnormality. ? Electronically signed by: ??Eduard Garcia MD ??07/21/2024 03:44 PM EDT ? Dictated By: ?Eduard Garcia MD ? Signed By: ?<Electronically signed by Eduard Garcia MD in OV> ?07/21/24 1544 ? DD/ 1523 ? TD/TT: 07/21/24 1538 ? Motion Picture Film Examiner: ? Procedure Note Raysa, Image - 07/21/[address] [address] XRay Report Signed Patient: Denis Martinez AMR#: [id number] : 1965Acct:[id number] Age/Sex: 59 / MADM Date: 07/21/24 Loc: HO.HHCX Attending Dr: Bhargav Louise MD Ordering Physician: Bhargav Louise MD Date of Service: 07/21/24 Procedure(s): XR chest 2V Accession Number(s): [id number] cc: Bhargav Louise MD EXAMINATION: XR CHEST 2 VIEWS HISTORY: positive PPD COMPARISON: Comparison is made with the prior examination dated 10/01/2023. FINDINGS: PA and lateral views of the chest are submitted. The lungs are expanded and clear. There is no pleural effusion, pneumothorax, or pulmonary vascular congestion. The heart is normal in size. The bones are intact. XR/XR chest 2V IMPRESSION: No acute cardiopulmonary abnormality. 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
--- OUTSIDE RECORDS SUMMARY | 2024-07-21 16:14 | XMS_ITS | Encounter Summary ---
Author Organization [employer] Address 75 [facility] 7t [place] [address] Care Team Providers Care Artificial Breeding Ranch Supervisor Name Role Phone Bhargav Patel MD Primary Care Provide r Reason for Visit * Reason Onset Date Comments chartprep 07/20/2024 Encounter Details Date Type Department Care Team ([facility] st Contact Info) Description 07/20/2024 Telephone [facility] MEDICINE [address] [place], [place] [phone] Bhargav Patel MD [address] [place] [address] chartprep Social History Tobacco Use Types Packs/Day Years [...] encounter Miscellaneous Notes * Telephone Encounter - Morena Wolff MA - 07/20/2024 4:13 PM EDT ..Chart Prep Labs: done Images: not applicable Vaccines due: Hep A Due and RSV in Pharmacy Due Referrals: Not Applicable Screenings: Colonoscopy Overdue care gaps: Disability and Oral Health documented in this encounter Plan of Treatment Not on file documented as of this encounter Visit Diagnoses Not on filedocumented in this encounter Additional Health Concerns Assessment Noted Time PHQ-9 Depression Total Score: 2 10/01/19 24 2:12 PM EDT documented as of this encounter Care Teams Artificial Breeding Ranch Supervisor Relationship Specialty Start Date End Date Bhargav Patel MD [address] [place] [address] PCP - General Internal Medicine 10/26/13 documented as of this encounter
--- OUTSIDE RECORDS SUMMARY | 2024-07-21 16:14 | XMS_ITS | Encounter Summary ---
Author Organization [employer] Address 75 [facility] 7t [place] [address] Care Team Providers Care Surgery Nurse Name Role Phone Bhargav Patel MD Primary Care Provide r Reason for Visit * Reason Onset Date Comments Med Refill 11/07/2023 Encounter Details Date Type Department Care Team ([facility] st Contact Info) Description 11/07/2023 Telephone [facility] MEDICINE [address] [place], [place] [phone] Bhargav Patel MD [address] [place] [address] Med Refill Social History Tobacco Use Types [...] Telephone Encounter - Kely Jiménez LPN - 11/13/2023 8:38 AM EDT Medication is prescribed by Cardiology please advise patient to contact their office. * Telephone Encounter - Hazel García - 11/13/2023 8:12 AM EDT Tc from pt requesting status on med refill. * Telephone Encounter - Kely Jiménez LPN - 11/07/2023 11:14 AM EDT Medication isn't prescribed by PCP. * Telephone Encounter - Emily Jorgensen - 11/07/2023 11:09 AM EDT TC from pt requesting medication refill. Medications needing refill : rosuvastatin (Crestor) 40 MG tablet To be sent to: [facility]/pharmacy #[id number] - [place], [place] - [address] [facility] documented in this encounter Plan of Treatment Not on file documented as of this encounter Visit Diagnoses Not on filedocumented in this encounter Additional Health Concerns Assessment Noted Time PHQ-9 Depression Total Score: 2 10/01/19 24 2:12 PM EDT documented as of this encounter Care Teams Surgery Nurse Relationship Specialty Start Date End Date Bhargav Patel MD [address] [place] [address] PCP - General Internal Medicine 10/26/13 documented as of this encounter
--- OUTSIDE RECORDS SUMMARY | 2024-07-21 16:14 | XMS_ITS | Encounter Summary ---
Author Organization [employer] Address 75 [facility] [address] [place] [address] Care Team Providers Care Ip/Mosaic Technician Name Role Phone Bhargav Patel MD Primary Care Provide r Reason for Visit * Reason Onset Date Comments Medication Question 05/13/2023 Encounter Details Date Type Department Care Team ([facility] st Contact Info) Description 05/13/2023 Telephone [facility] MEDICINE [address] [place], [place] [phone] Bhargav Patel MD [address] [place], [place] [phone] Medication Question Social History Tobacco Use Types Packs/Day Years Used Date Smoking Tobacco: Former Cigarettes Passive Smoke Exposure: Past Smokeless Tobacco: Never Depression Answer Date Recorded Patient Health Questionnaire-9 Score 2 09/04/2022 Housing Stability Answer Date Recorded What is your housing situation today? I have tobin jones 01/02/[address] you li ve. Do you have problems with any of the following? None of the above 01/02/2023 Food Insecurity Answer Date Recorded Within the past 12 months, y ou worried that your food would run out before you got money to buy more: Never True 01/02/2023 Within the past 12 months,th e food you bought just didn't last and you didn't have enough money to get more: Never True Transportation Answer Date Recorded In the past 12 months, has l ack of transportation kept you from medical appts, meetings, work or from getting things needed for daily living? No 01/02/2023 Utilities Answer Date Recorded In the past 12 months, has t he electric, gas, oil or water Upower threatened to shut off services in your home? No 01/02/2023 Depression Answer Date Recorded Patient Health Questionnaire-2 Score 0 09/04/2022 Sex and Gender Information Value Date Recorded Sex Assigned at Male 01/08/2022 10:15 AM EDT Legal Sex Male 10:15 AM EDT Gender Identity Male 01/08/2022 10:15 AM EDT Sexual Orientation Straight 01/08/2022 10 :15 AM EDT documented as of this encounter Miscellaneous Notes * Telephone Encounter - Dave Lambert - 05/13/2023 3:05 PM EST Tc from pt stating director public service requested to increase dosage for rosuvastatin (Crestor) 5 MG tablet. Pt stated director public service faxed over a request to the pharmacy. Please contact pt at [phone] documented in this encounter Plan of Treatment Not on file documented as of this encounter Visit Diagnoses Not on filedocumented in this encounter Additional Health Concerns Assessment Noted Time PHQ-9 Depression Total Score: 2 09/05/19 23 8:59 AM EDT documented as of this encounter Care Teams Ip/Mosaic Technician Relationship Specialty Start Date End Date Bhargav Patel MD [address] [place] [address] PCP - General Internal Medicine 10/26/13 documented as of this encounter
--- OUTSIDE RECORDS SUMMARY | 2024-07-21 16:14 | XMS_ITS | Encounter Summary ---
Author Organization [employer] Address 75 [facility] 7t [place] [address] Care Team Providers Care Press Worker Helper Name Role Phone Bhargav Patel MD Primary Care Provide r Reason for Visit * Reason Onset Date Comments Med Refill 02/24/2024 Encounter Details Date Type Department Care Team ([facility] st Contact Info) Description 02/24/2024 Telephone [facility] MEDICINE [address] [place], [place] [phone] Bhargav Patel MD [address] [place] [address] Med Refill Social History Tobacco Use Types [...] Telephone Encounter - Kely Jiménez LPN - 02/24/2024 11:35 AM EST Medication was sent to [facility] #[id number] on 10/17/23 #90 with 3 refills. * Telephone Encounter - Kenzie Zimmerman - 02/24/2024 11:12 AM EST TC from pt requesting medication refill. Medications needing refill : - Aspirin Low Dose 81 MG EC tablet To be sent to: [facility]/pharmacy #[id number] - [place], [place] - [address] [place] [address] RD. AT [employer] [facility] documented in this encounter Plan of Treatment Not on file documented as of this encounter Visit Diagnoses Not on filedocumented in this encounter Additional Health Concerns Assessment Noted Time PHQ-9 Depression Total Score: 2 10/01/19 24 2:12 PM EDT documented as of this encounter Care Teams Press Worker Helper Relationship Specialty Start Date End Date Bhargav Patel MD [address] [place] [address] PCP - General Internal Medicine 10/26/13 documented as of this encounter
--- OUTSIDE RECORDS SUMMARY | 2024-07-21 16:14 | XMS_ITS | Continuity of Care Document ---
Author Organization [facility] Address [address] [place] [phone] Phone Care Team Providers Care World Language Teacher Name Role Phone Shannan Hi MD Unavailable [...] Providers Copied on Encounter [facility] , [address] [place] [address], [id number], [place] tel:[phone] [facility] No Information May- 6 Kolton Campbell. [address] [place] [address], [id number] , [place]. tel:[phone] OV - Established Patient [facility] , [address] [place] [address], [id number], [place] tel:[phone] [facility] Incompl Bladder EmptyingBPH W URINARY OBSTRUCTNSlow Urinary StreamIncompl Bladder EmptyingUnc Behav Jovi Prostate Sep-0 2-201 5 Shaji Bravo. [address] [place] [address], [id number] , [place]. tel:[phone] Referring Provider: Gunner Israel, [address] [place], [address]. tel:[phone] [facility] , [address] [place] [address], [id number], [place] tel:[phone] [facility] Redun Prepuce & PhimosisVascular Disorder, PenisUnspec Male Dis-Scrotal/Test/ Perineal Pain Maxi-2 0-201 4 [facility] Shannan. [address] [place] [address], [address], [place], [id number] , [place]. tel:[phone] Referring Provider: Shannan Hi, [address] [place] [address], [address] . tel:[phone] Initial H[facility] Care - [facility] , [address] [place] [address] [place], [id number], [place] tel:[phone] [facility] Redun Prepuce & PhimosisUnspec Male Dis-Scrotal/Test/ Perineal PainVascular Disorder, Penis Maxi-0 8-201 4 [facility] Shannan. [address] [place] [address] [address], [id number] , [place]. tel:[phone] Referring Provider: Shannan Hi, [address] [place] [address] [place], [address] . tel:[phone] Family History Family Member Type Diagnosis Age At Onset No Information Payers Payer name Insurance type Covered constitution party ID Authortrinidada giuseppe(s) [place] Medicaid - [facility] [id number] Social History Type Description Quantity Date Captured [...]
--- OUTSIDE RECORDS SUMMARY | 2024-07-21 16:14 | XMS_ITS | Encounter Summary ---
Author Organization [employer] Address 75 [facility] 7t [place] [address] Care Team Providers Care Box Stacker Name Role Phone Bhargav Patel MD Primary Care Provide r Encounter Details Date Type Department Care Team ([facility] st Contact Info) Description 07/18/2022 Abstract [facility] MEDICINE [address] [place], [place] [phone] Bhargav Patel MD [address] [place], [place] [phone] Social History Tobacco Use Types Packs/Day Years [...] on file documented as of this encounter Procedures Procedure Name Priority Date/Time Associated Diagnosis Comments COLONOSCOPY Routine 09/03/2017 documented in this encounter Results * Colonoscopy (09/03/2017) Colonoscopy Normal Normal 09/03/2017 Narrative Melissa Fay - 09/03/2017 4:09 PM EDT Recommended 3 year follow up due to polyps Historical Provider HEALTH MAINTENANCE Edited Result - Final documented in this encounter Visit Diagnoses Not on filedocumented in this encounter Care Teams Box Stacker Relationship Specialty Start Date End Date Bhargav Patel MD [address] [place] [address] PCP - General Internal Medicine 10/26/13 documented as of this encounter
--- OUTSIDE RECORDS SUMMARY | 2024-07-21 16:14 | XMS_ITS | Encounter Summary ---
Author Organization [facility] Address [address] [place] [address] [address] [place] [address] Care Team Providers Care Core Analysis Operator Name Role Phone Bhargav Patel MD Primary Care Provide r Reason for Visit * Reason Comments Med Refill Encounter Details Date Type Department Care Team (Late st Contact Info) Description 04/24/2022 Refill [facility] [address] [place], [place] [phone] Wong Garsia MD [address] [place] [address] Social History Tobacco Use Types Packs/Day Years [...] on filedocumented in this encounter Care Teams Core Analysis Operator Relationship Specialty Start Date End Date Bhargav Patel MD [address], [place] [phone] PCP - General Internal Medicine 10/26/13 documented as of this encounter
--- OUTSIDE RECORDS SUMMARY | 2024-07-21 16:14 | XMS_ITS | Clinical Summary ---
Author Organization [facility] Address [address] [place] [address] Care Team Providers Care Patient Access Coordinator Name Role Phone Bhargav Louise MD Primary [...] DTaP,Tdap,and Td Vaccines (1 - Tdap) 06/16/1983 Pneumococcal Vaccine: 50+ Ye ars (1 of 1 - PCV) 2014 Zoster Vaccines (1 of 2) 2014 COVID-19 Vaccine ( - 2023-2 5 season) 2023 Influenza Vaccine (Season Ended) 2024 RSV Immunization Adult Patie nts (1 - 1-dose 75+ series) 06/16/2039 HIB Vaccines Aged Out No longer eligi ble based on patient's age to complete this topic HPV Vaccines Aged Out No longer eligi ble based on patient's age to complete this topic Hepatitis A Vaccines Aged Out No long er eligible based on patient's age to complete this topic Hepatitis B Vaccines Aged Out No long er eligible [...] age to complete this topic Meningococcal B Vaccine Aged Out No l onger eligible based on patient's age to complete [...] age to complete this topic Care Teams Patient Access Coordinator Relationship Specialty Start Date End Date Bhargav Louise MD [address] [place] [address] [place] [address] PCP - General Internal Medicine 04/10/12
--- OUTSIDE RECORDS SUMMARY | 2024-07-21 16:14 | XMS_ITS | Clinical Summary ---
Author Organization [employer] Address [address] [place] [address] Care Team Providers Care Departure Clerk Name Role Phone Bhargav Patel MD Primary Care Provide r Allergies No known active allergies Medications clotrimazole (Lotrimin) 1 % creamIndications:D ermatitis APPLY TO AFFECTED AREA TWICE A DAY IN THE MORNING AND IN THE EVENING 30 g 1 3 Active cetirizine (ZyrTEC) 10 MG tabletIndications: Acute atopic conjunctivitis of both eyes Take 1 tablet (10 mg) by mouth in the morning. 30 tablet 2 3 Active rosuvastatin (Crestor) 40 MG tablet Take 40 mg by mouth in the morning. 4 Active metoprolol tartrate (Lopressor) 25 MG tablet TAKE 1 TABLET BY MOUTH TWICE A DAY 180 tablet 3 4 Active Aspirin Low Dose 81 MG EC tablet TAKE 1 TABLET BY MOUTH EVERY DAY 90 tablet 3 4 Active clobetasol (Temovate) 0.05 % creamIndications:D ermatitis APPLY THIN COAT TO AFFECTED AREA EVERY DAY 60 g 4 Active amLODIPine (Norvasc) 2.5 MG tablet Take 1 tablet (2.5 mg) by mouth Once per day. 30 tablet 11 4 025 Active clotrimazole-betam ethasone (Lotrisone) creamIndications:T inea Apply topically 2 times daily. 45 g 3 4 Active olopatadine (Patanol) 0.1 % ophthalmic solutionIndication s:Acute atopic conjunctivitis of both eyes Administer 1 drop into affected eye(s) 2 times daily. 5 mL 2 4 025 Active allopurinol (Zyloprim) 300 MG tabletIndications: Hyperuricemia TAKE 1 TABLET BY MOUTH EVERY DAY 90 tablet 3 5 Active Active Problems Problem Noted Date Diagnosed Date Routine physical examination 07/21/2024 Assessment & Plan (07/21/2024 3:00 PM EDT): Exam today within normal limits PSA: 2021 Normal, will repeat Colonoscopy: TA : 07/26/2017, repeat 05/01/2022 showed a polyp, 3 year follow up recommended Dr Billy Anaya Subarachnoid hemorrhage 11/12/2023 Overview (11/12/2023): Small after fall at work. Evaluated in [facility]. Transferred to [facility] but did not require intervention. Assessment & Plan (01/30/2024 2:45 PM EST): Pt here for a follow up. Seen at the ER 10/2023 s/p fall at work. Transferred to [facility] but did not require intervention Seasonal allergies 05/28/2023 Assessment & Plan (05/28/2023 1:30 PM EDT): Not improving despite Zyrtec and Flonase Plan: [facility] specialist referral Acute atopic conjunctivitis of both eyes 023 Assessment & Plan (01/22/2023 12:41 PM EST): Pt with persistent clear discharge from both eyes, seen here treated for presumptive bacterial conjunctivitis with no good results. Seen 01/17/[address] Otto Today exam suggestive of allergic component Plan: Optometry eval, Patanol ophthalmic Pt advised to call if symptoms do not improve or worsen Hx of syphilis 09/04/2022 Assessment & Plan (01/30/2024 2:51 PM EST): Pt seen by Dr Sarai Lozada Per [facility] no documentation found for treatment when pt had first positive RPR in 1995. They recommend treating with penicillin x 3 weeks. Pt tells me he recalls he was treated as a teenager in [place] Pt's titer went up from 1;1 to 1:8 . Pt completed Bicillin Im x 3 to document successful treatment Repeat titer 11/2022 down 1:4 Assessment & Plan (09/04/2022 8:40 AM EDT): Pt seen by Dr Sarai Lozada Per [facility] no documentation found for treatment when pt had first positive RPR in 1995. They recommend treating with penicillin x 3 weeks. Pt tells me he recalls he was treated as a teenager in [place] Pt's titer went up from 1;1 to 1:8 . Pt completed Bicillin Im x 3 to document successful treatment Will repeat titer Coronary artery disease invo lving [place] coronary artery of [place] heart without angina pectoris 09/04/2022 Assessment & Plan (07/21/2024 2:57 PM EDT): Hx of NSTEMI Pt is s/p cardiac catheterization on 11/08/20 -RCA 95% occlusion s/p JUSTICE -LAD and LCx are patent -Echo LVEF 60-65%, mild hypokinesis -continue ASA -continue metoprolol tartrate -continue rosurvasatin 40 mg Pt now under the care of [facility], last seen 09/17/2023. 1 year follow up recommended Last ECHO 08/2023 Continue working on smoking cessation and other risk factor management Assessment & Plan (10/01/2023 2:15 PM EDT): Hx of NSTEMI Pt is s/p cardiac catheterization on 11/08/20 -RCA 95% occlusion s/p JUSTICE -LAD and LCx are patent -Echo LVEF 60-65%, mild hypokinesis -continue ASA and plavix -continue metoprolol tartrate -continue rosurvasatin, increased to 40 mg Pt now under the care of [facility], last seen 09/2023 Last ECHO 08/2023 Continue working on smoking cessation and other risk factor management Assessment & Plan (05/28/2023 1:25 PM EDT): Hx of NSTEMI Pt is s/p cardiac catheterization on 11/08/20 -RCA 95% occlusion s/p JUSTICE -LAD and LCx are patent -Echo LVEF 60-65%, mild hypokinesis -continue ASA and plavix -continue metoprolol tartrate -continue rosurvasatin, increased to 40 mg Pt now under the care of [facility], last seen 04/2023 Continue working on smoking cessation and other risk factor management Assessment & Plan (01/22/2023 10:33 AM EST): Hx of NSTEMI Pt is s/p cardiac catheterization on 11/08/20 -RCA 95% occlusion s/p JUSTICE -LAD and LCx are patent -Echo LVEF 60-65%, mild hypokinesis -continue ASA and plavix -continue metoprolol tartrate -continue rosurvasatin Pt would like to see a different Lab Nurse since the one he had keeps changing his appointment Will refer to [facility] Continue working on smoking cessation and other risk factor management Assessment & Plan (09/04/2022 8:41 AM EDT): Hx of NSTEMI Pt is s/p cardiac catheterization on 11/08/20 -RCA 95% occlusion s/p JUSTICE -LAD and LCx are patent -Echo LVEF 60-65%, mild hypokinesis -continue ASA and plavix -continue metoprolol tartrate -continue rosurvasatin -follow-up with financial underwriter, recently seen -continue working on smoking cessation and other risk factor management Liver lesion, left lobe 09/04/2022 Assessment & Plan (01/22/2023 12:39 PM EST): Pt had an incidental finding on a low dose CT of the lungs done 01/12/2022 of 1 cm low attenuation lesion in the lateral segment of the left lobe of the liver Previous visit we order a repeat study Done 09/14/2022: CT of Abdomen with and without contrast showed benign, simple hepatic and left renal cysts, for which no imaging follow-up is recommended. The left renal cyst corresponds with the CT finding noted previously.. Severe right renal atrophy, small fat containing umbilical hernia Assessment & Plan (09/04/2022 9:23 AM EDT): Pt had an incidental finding on a low dose CT of the lungs done 01/12/2022 of 1 cm low attenuation lesion in the lateral segment of the left lobe of the liver Plan: repeat study. Cyst? Hypertriglyceridemia 02/26/2022 Assessment & Plan (07/21/2024 2:59 PM EDT): Patient here for a f/u Most recent [...] diet, counseled and educated about diet and exercise, Patient encouraged to come up with a personal goal for weight loss. Repeat Lipid profile Assessment & Plan (01/30/2024 2:52 PM EST): Patient here for a f/u Most recent [...] diet, counseled and educated about diet and exercise, Patient encouraged to come up with a personal goal for weight loss. Assessment & Plan (05/28/2023 1:29 PM EDT): Patient here for a f/u Most recent lipid profile from: 10/17/22 Component Ref Range & Units 3 mo ago 1 yr ago 2 yr ago 3 yr ago Triglycerides mg/dL 91 92 R 117 R 144 R Comment: Desirable Triglyceride: less than 150 mg/dLBorderline High Triglyceride 150-199 mg/dLHigh Triglyceride: 200-499 mg/dLVery High Triglyceride: greater than or equal to 5OO mg/dL Cholesterol mg/dL 131 Comment: Desirable Cholesterol: less than 200 mg/dLBorderline High Cholesterol: 200-239 mg/dLHigh Cholesterol: greater than 239 mg/dL LDL Cholesterol Calculated mg/dl 48 Comment: Desirable LDL: less than 100 mg/dLNear Optimal/Above Optimal LDL: 110- 129 mg/dLBorderline High LDL: 130-159 mg/dLHigh LDL: 160-189 mg/dLVery High LDL: greater than or equal to 190 mg/dL HDL Cholesterol mg/dL 65 58 R 63 R 50 R Currently on a regimen Of Rosuvastatin 40 mg Increased by Cardiology advised to try to adhere to a low cholesterol diet, counseled and educated about diet and exercise, Patient encouraged to come up with a personal goal for weight loss. Assessment & Plan (01/22/2023 8:35 AM EST): Patient here for a f/u Most recent lipid profile from: 10/17/22 Component Ref Range & Units 3 mo ago 1 yr ago 2 yr ago 3 yr ago Triglycerides mg/dL 91 92 R 117 R 144 R Comment: Desirable Triglyceride: ? less than 150 mg/dLBorderline High Triglyceride ??150-199 mg/dLHigh Triglyceride: ?200-499 mg/dLVery High Triglyceride: ? greater than or equal to ?5OO mg/dL Cholesterol mg/dL 131 Comment: Desirable Cholesterol: ?less than 200 mg/dLBorderline High Cholesterol: ??200-239 mg/dLHigh Cholesterol: ? greater than 239 mg/dL LDL Cholesterol Calculated mg/dl 48 Comment: Desirable LDL: ? less than 100 mg/dLNear Optimal/Above Optimal LDL: ??110-129 mg/dLBorderline High LDL: ? 130-159 mg/dLHigh LDL: ?160-189 mg/dLVery High LDL: ? greater than or equal to ? 190 mg/dL HDL Cholesterol mg/dL 65 58 R 63 R 50 R Currently on a regimen Of Rosuvastatin 5 mg Plan: Continue current regimen advised to try to adhere to a low cholesterol diet, counseled and educated about diet and exercise, Patient encouraged to come up with a personal goal for weight loss. Assessment & Plan (09/04/2022 8:39 AM EDT): Patient here for a f/u Most recent lipid profile from: 12/26/2020 shows a total cholesterol of: 133 triglycerides of: 117 HDL of: 63 and LDL of: 50 Will repeat Currently on a regimen Of Rosuvastatin 5 mg Plan: Continue current regimen Repeat Lipid profile advised to try to adhere to a low cholesterol diet, counseled and educated about diet and exercise, Patient encouraged to come up with a personal goal for weight loss. Mild emphysema 02/26/2022 Assessment & Plan (07/21/2024 2:54 PM EDT): Pt here for a follow up doing well today On Albuterol HFA Low dose CT 01/12/2023 Benign aside from mild emphysema. Assessment & Plan (10/01/2023 2:20 PM EDT): Pt doing well today On Albuterol HFA Low dose CT 01/12/2023 Benign aside from mild emphysema. 1 year follow up Assessment & Plan (09/04/2022 9:25 AM EDT): Pt doing well today On Albuterol HFA Low dose CT 01/12/2023 Benign aside from mild emphysema. 1 year follow up Tubular adenoma of colon 02/26/2022 Assessment & Plan (01/30/2024 3:03 PM EST): TA : 07/26/2017, repeat 05/01/2022 showed a polyp, 3 year follow up recommended Dr Billy Anaya Assessment & Plan (09/04/2022 9:03 AM EDT): TA : 07/26/2017, repeat 05/01/2022 showed a polyp, 3 year follow up recommended Dr Billy Anaya Benign prostatic hyperplasia with nocturia 06/25 Impaired glucose tolerance 01/08/2017 Assessment & Plan (09/04/2022 8:43 AM EDT): FBS elevated 107, previous 110 Pt counseled and educated about diet and exercise and need to loose weight Repeat Hypertension 07/07/2012 Assessment & Plan (07/21/2024 2:55 PM EDT): Patient here for a follow up BP [...] about medication compliance, counseled about weight loss. Assessment & Plan (01/30/2024 2:49 PM EST): Patient here for a follow up BP currently controlled on a regimen of: Metoprolol 25 mg po BID and Amlodipine 2.5 mg po daily off Chlorthalidone Pt's most recent electrolytes, Bun and Creatinine done on: Lab Results Component Value Date NA 139 11/06/2023 NA 142 10/07/2023 K 4.2 11/06/2023 K 4.8 10/07/2023 CL 109 (H) 11/06/2023 CL 109 (H) 10/07/2023 BUN 16 11/06/2023 BUN 20 (H) 10/07/2023 CREATININE 0.85 11/06/2023 CREATININE 1.03 10/07/2023 were wnl. Plan Continue current regimen 4 months f/u with me patient has advised to adhere to a low sodium diet, encouraged about medication compliance, counseled about weight loss. Assessment & Plan (10/01/2023 2:16 PM EDT): Patient here for a follow up BP currently controlled on a regimen of: Metoprolol 25 mg po daily off Chlorthalidone Pt's most recent electrolytes, Bun and Creatinine done on: 10/17/2022 were wnl. Will repeat Plan Continue current regimen 4 months f/u with me patient has advised to adhere to a low sodium diet, encouraged about medication compliance, counseled about weight loss. Assessment & Plan (05/28/2023 1:24 PM EDT): Patient here for a follow up BP currently controlled on a regimen of: Metoprolol 25 mg po daily off Chlorthalidone Pt's most recent electrolytes, Bun and Creatinine done on: 10/17/2022 were wnl. Plan Continue current regimen 4 months f/u with il patient has advised to adhere to a low sodium diet, encouraged about medication compliance, counseled about weight loss. Assessment & Plan (01/22/2023 8:33 AM EST): Patient here for a follow up BP currently controlled on a regimen of: Metoprolol 25 mg po daily off Chlorthalidone Pt's most recent electrolytes, Bun and Creatinine done on: 10/17/2022 were wnl. Plan Continue current regimen 4 months f/u with il patient has advised to adhere to a low sodium diet, encouraged about medication compliance, counseled about weight loss. Assessment & Plan (09/04/2022 8:37 AM EDT): Patient here for a follow up BP currently controlled on a regimen of: Metoprolol 25 mg po daily off Chlorthalidone Pt's most recent electrolytes, Bun and Creatinine done on: 12/26/2020 were wnl. Will repeat Plan Continue current regimen 4 months f/u with me patient has advised to adhere to a low sodium diet, encouraged about medication compliance, counseled about weight loss. Mantoux: positive 07/07/2012 Assessment & Plan (07/21/2024 2:58 PM EDT): Hx of positive PPD Asking for Chest x-ray surveillance Smoker 07/07/2012 Assessment & Plan (01/22/2023 8:36 AM EST): Low dose CT 01/12/2023 Benign aside from mild emphysema. 1 year follow up Assessment & Plan (09/04/2022 8:47 AM EDT): Previously referred for LDCT, in [address] obtained Resolved Problems Problem Noted Date Diagnosed Date Resolved Date COVID-19 03/28/2023 01/30/2024 Assessment & Plan (03/28/2023 10:38 AM EST): Drink plenty of fluids and rest Quarantine as per CDC guidelines paxlovid prescribed medication interactions reviewed instruction where given to patient Acetaminophen PRN If SOB, chest pain, confusion go to ED or call ambulance Encounters Date Type Department Care Team Description 07/21/2024 3:00 PM EDT Office Visit [facility] [address] [place] [phone] Bhargav Patel MD Mild emphysema (CMS/HCC) (Primary Dx); Primary hypertension; Coronary artery disease involving [place] coronary artery of [place] heart without angina pectoris; Mantoux: positive; Hypertriglyceridemia; Routine physical examination 07/21/2024 Travel 07/20/2024 Telephone [facility] [address] [place] [address] Bhargav Patel MD chartprep 07/14/2024 Patient Outreach [facility] [address] [place], [place] [phone] Bhargav Patel MD Pre-visit Planning (SDOH negative, Tobacco screening negative) 07/14/2024 Telephone [facility] [address] [place] [address] Bhargav Patel MD Appointment Request 05/10/2024 Refill [facility] [address] [place] [address] Kamini Ohara ANP Hyperuricemia 04/29/2024 Orders Only [facility] [address] [place] [address] Radha Kimbrough MD Routine adult health maintenance 04/29/2024 Telephone [facility] [address] [place] [address] Radha Kimbrough MD from Last 3 Months Immunizations Name Administration Dates Next Due Hep B, adult 02/14/2005,04/23/2003,12/02/2002 Influenza injectable quadriv alent IIV4 with preservative 12/27/2015 Influenza injectable quadriv alent preservative free 12/11/2022,11/28/2021,12/26/2020,2016 Influenza, IIV3, injectable 12/28/2010 Influenza, Split (incl. jack fied surface antigen) 12/22/2012 Influenza, seasonal, injecta ble, preservative free 11/28/2023 Moderna Covid-19 Vaccine 12+ 10/20/2021, 02/09/2021,04/29/2020,2020 Pneumococcal Conjugate PCV 20 10/01/2023 TD (adult), 2 Lf tetanus tox oid, preservative free, adsorbed 10/30/2001 Tdap 10/28/2014 Zoster, Recombinant 03/07/2023,12/30/2022 Social History Tobacco Use Types Packs/Day Years [...] Orientation Straight 01/08/2022 10 :15 AM EDT Last Filed Vital Signs Vital Sign Reading [...] Mass Index 28.37 07/21/2024 2:50 PM EDT Plan of Treatment Health Maintenance Due Date Last Done Comments CT Colonography 1964 Dental Oral Exam 1964 Dental Prophylaxis 1964 Dental X-Ray: Bitewings 1964 Dental X-Ray: Full Mouth 1965 FIT DNA/Cologuard 1965 FIT 1965 FOBT 1965 Sigmoidoscopy 1965 Hepatitis C Screening 1982 Hepatitis A Vaccines (1 of 2 - Risk 2-dose series) 06/16/1983 COVID-19 Vaccine ( season) 2023 10/20/2021, 02/09/2021, 04/29/2020, Additional history exists RSV Patients and Patients Aged 60 years or older (1 - Risk 60-74 years 1-dose series) 2024 Depression Screening 09/30/2024 10/01/2023, 10/01/19 DTaP/Tdap/Td Vaccines (2 - Td or Tdap) 10/28/2024 10/28/2014, 10/30/2001 Alcohol/Substance Use Screening 01/29/2025 01/30/2024 Colonoscopy 05/01/2025 05/01/2022, 09/03/2017 Colorectal Cancer Screening 05/01/2025 SDOH Screening 07/14/2025 07/14/2024 Tobacco Screening 07/21/2025 07/21/2024 Lipid Panel 10/06/2028 10/07/2023, 08/0 11/2022, 10/26/2021, Additional history exists Hepatitis B Vaccines Completed 02/14/2005, 04/23/2003, 12/02/2002 HIV Screening Completed 08/08/2021 Zoster Vaccines Completed 03/07/2023, 12/30/2022 Pneumococcal Vaccine: 50+ Years Completed 10/01/2023 Influenza Vaccine Completed 11/28/2023, , 11/28/2021, Additional history exists HIB Vaccines Aged Out No longer eligi ble based on patient's age to complete this topic HPV Vaccines Aged Out No longer eligi ble based on patient's age to complete this topic IPV Vaccines Aged Out No longer eligi ble based on patient's age to complete this topic Meningococcal Vaccine Aged Out No concepción richie eligible based on patient's age to complete this topic RSV under 20 months Aged Out No longe r eligible based on patient's age to complete this topic Rotavirus Vaccines Aged Out No longer eligible based on patient's age to complete this topic Procedures Procedure Name Priority Date/Time Associated Diagnosis Comments XR CHEST 2 VIEWS Routine 07/21/2024 3:23 PM EDT Mantoux: positive COMPREHENSIVE METABOLIC PANEL Routine 05/04/2024 2:13 PM EST Routine adult health maintenance LIPID PANEL, STANDARD Routine 10/07/2023 8:04 AM EDT Coronary artery disease involving [place] coronary artery of [place] heart without angina pectoris HM COLONOSCOPY Routine 05/01/2022 HIV 1/2 ANTIGEN/ANTIBODY, FOURTH GENERATION W/RFL Routine 08/08/2021 10:42 AM EDT from Last 3 Months or Most Recently Relevant to Health Maintenance Results * XR Chest 2 Views (07/21/2024 3:23 PM EDT) Anatomical Region Laterality Modality Chest Radiographic Rosy ging 07/21/2024 3:23 PM EDT Narrative 07/21/2024 3:47 PM EDT ?[facility] ?[address] ?[place] [address] ?XRay Report ? Signed ? Patient: Denis Martinez ?MR#: [id number] ? : 1965 ?Acct:[id number] ? Age/Sex: 59 / M ?ADM Date: 07/21/24 ? Loc: HO.HHCX ? Attending Dr: Bhargav Louise MD ? Ordering Physician: Bhargav Louise MD ?? Date of Service: 07/21/24 ?? Procedure(s): XR chest 2V ?? Accession Number(s): [id number] ? cc: Bhargav Louise MD ? EXAMINATION: [...] ??Eduard Garcia MD ??07/21/2024 03:44 PM EDT ?? RP ? Dictated By: ?Eduard Garcia MD ? Signed By: ?<Electronically signed by Eduard Garcia MD in OV> ?07/21/24 1544 ? DD/ 1523 ? TD/TT: 07/21/24 1538 ? Coordinator Hotels: ? Procedure Note Donotisabelleinterpreter, Image - 07/21/2024 [facility] [address] [place] [address] XRay Report Signed Patient: Denis Martinez AMR#: [id number] : 1965Acct:[id number] Age/Sex: 59 / MADM Date: 07/21/24 Loc: HO.HHCX Attending Dr: Bhargav Louise MD Ordering Physician: Bhargav Louise MD Date of Service: 07/21/24 Procedure(s): XR chest 2V Accession Number(s): [id number] cc: Bhargav Louise MD EXAMINATION: XR CHEST [...] Eduard Garcia MD 07/21/2024 03:44 PM EDT Dictated By: Eduard Garcia MD Signed By: <Electronically signed by Eduard Garcia MD in OV> 07/21/24 1544 DD/ 1523 TD/TT: 07/21/24 1538 Coordinator Hotels: us Bhargav Wolff MD IMG XR PROCEDURES Fin al Result * (ABNORMAL) Comprehensive Metabolic Panel (05/04/2024 2:13 PM EST) Sodium 145 135 - 145 mmol/L [facility] Potassium 4.4 3.3 - 5.1 mmol/L [facility] Chloride 109(H) 96 - 108 mmol/L [facility] Carbon Dioxide 29 22 - 29 mmol/L [facility] Anion Gap 11(L) 12 - 20 [facility] Urea Nitrogen (BUN) 17(H) 9 - 16 mg/dL [facility] Creatinine, Serum 0.89 0.5 - 1.4 mg/dL [facility] Estimated Glomerular Filt Rate >60 [facility] Comment:Chronic Kidney Disea se: Estimated GFR < 60 mL/min/1.58i9Hptrdx Kidney Disease: Estimated GFR < 15 mL/min/1.73m2 Glucose 79 60 - 115 mg/dL [facility] Calcium 9.4 8.4 - 10.2 mg/dL [facility] Bilirubin, Total 0.7 0.0 - 1.0 mg/dL [facility] Aspartate Amino Transferase 46(H) 5 - 37 U/L [facility] Alanine Aminotransferase 53(H) 0 - 40 U/L [facility] Total Protein 7.1 6.5 - 8.0 g/dL [facility] Albumin Level 3.9 3.5 - 5.0 g/dL [facility] Alkaline Phosphatase 98 39 - 117 U/L [facility] Blood Venous blood specimen / Unknown 05/04/2024 2:13 PM EST 05/04/2024 2:13 PM EST us Radha Kimbrough MD LAB BLOOD ORDERABLES Final Resul t [facility] [address] [place] [phone] * Lipid Panel, Standard (10/07/2023 8:04 AM EDT) Triglycerides 104 <150 mg/dL [facility] Comment:Desirable Triglyceri de: less than 150 mg/dLBorderline High Triglyceride 150-199 mg/dLHigh Triglyceride: 200-499 mg/dLVery High Triglyceride: greater than or equal to 5OO mg/dL Cholesterol 130 <200 mg/dL [facility] Comment:Desirable Cholestero l: less than 200 mg/dLBorderline High Cholesterol: 200-239 mg/dLHigh Cholesterol: greater than 239 mg/dL LDL Cholesterol Calculated 40 <100 mg/dL [facility] Comment:Desirable LDL: less than 100 mg/dLNear Optimal/Above Optimal LDL: 110- 129 mg/dLBorderline High LDL: 130-159 mg/dLHigh LDL: 160-189 mg/dLVery High LDL: greater than or equal to 190 mg/dL HDL Cholesterol 70 >40 mg/dL [facility] Comment:Desirable HDL: great er than 40 mg/dL Note: This HDL assay may give artificially low results in patients with liver disease. Blood Venous blood specimen / Unknown 10/07/2023 8:04 AM EDT 10/07/2023 11:11 AM EDT Bhargav Wolff MD LAB BLOOD ORDERABLES Final Result Performing Organization Address City/State/[facility] Co de Phone Number [facility] [address] [place] [phone] * Colonoscopy (05/01/2022) [facility] Colonoscopy Normal Normal Comment:Dr Billy Dominguezz Marcello Provider HEALTH MAINTENANCE Final Result * HIV 1/2 ANTIGEN/ANTIBODY,FOURTH GENERATION W/RFL (08/08/2021 10:42 AM EDT) [facility] HIV-1/2 ANTIGEN AND ANTIBODIES, 4TH GENERATION W/ REFLEX NON-REACT NICK NON-REACT NICK [facility] Comment: HIV-1 antigen and HIV-1/HIV-2 antibodies were not detected. There is no laboratory evidence of HIV infection. ?? PLEASE NOTE: This information has been disclosed to you from records whose confidentiality may be protected by state law. ??If your state requires such protection, then the state law prohibits you from making any further disclosure of the information without the specific written consent of the person to whom it pertains, or as otherwise permitted by law. A general authorization for the release of medical or other information is NOT sufficient for this purpose. ? For additional information please refer to http://education.[employer]/faq/QRT882 (This link is being provided for informational/ educational purposes only.) ? The performance of this assay has not been clinically validated in patients less than 2 years old. ?? 08/08/2021 10:4 2 AM EDT us Sarai Lozada MD LAB BLOOD ORDERABLES Final Result [facility] [address] from Last 3 Months or Most Recently Relevant to Health Maintenance Insurance UNICARE DENTAL - HSN PARTIAL (MEDICAID) GENERIC TPL Care Teams Departure Clerk Relationship Specialty Start Date End Date Bhargav Patel MD [address] [place] [phone] PCP - General Internal Medicine 10/26/13
--- OUTSIDE RECORDS SUMMARY | 2024-07-21 16:14 | XMS_ITS | Encounter Summary ---
Author Organization [employer] Address 75 [facility] 7t [place] [address] Care Team Providers Care Director Stars Name Role Phone Bhargav Patel MD Primary Care Provide r Encounter Details Date Type Department Care Team ([facility] st Contact Info) Description 09/14/2022 Telephone [facility] MED[facility]INE [address] [place], [place] [phone] Bhargav Patel MD 230 [place] [address] Social History Tobacco Use Types Packs/Day Years [...] documented as of this encounter Care Teams Director Stars Relationship Specialty Start Date End Date Bhargav Patel MD [address] [place] [address] PCP - General Internal Medicine 10/26/13 documented as of this encounter
--- OUTSIDE RECORDS SUMMARY | 2024-07-21 16:14 | XMS_ITS | Encounter Summary ---
Author Organization [employer] Address 75 [facility] 7t [place] [address] Care Team Providers Care Sales And Service Officer Name Role Phone Bhargav Patel MD Primary Care Provide r Reason for Visit * Reason Onset Date Comments Med Refill 04/18/2022 Encounter Details Date Type Department Care Team ([facility] st Contact Info) Description 04/18/2022 Telephone [facility] 230 [place], [place] [phone] Bhargav Patel MD 230 [place] [address] Med Refill Social History Tobacco Use Types [...] Telephone Encounter - Kely Jiménez LPN - 04/18/2022 12:01 PM EST Patient needs to go to the pharmacy. * Telephone Encounter - Desmond Flores - 04/18/2022 11:31 AM EST Tc from pt requesting to have all med chart refilled and send over to [facility] on [facility]. documented in this encounter Plan of Treatment Not on file documented as of this encounter Visit Diagnoses Not on filedocumented in this encounter Care Teams Sales And Service Officer Relationship Specialty Start Date End Date Bhargav Patel MD 230 [place] [address] PCP - General Internal Medicine 10/26/13 documented as of this encounter
--- OUTSIDE RECORDS SUMMARY | 2024-07-21 16:14 | XMS_ITS | Encounter Summary ---
Author Organization [email or web address] Address 75 [facility] 7t [place] [address] Care Team Providers Care Medicare Biller Name Role Phone Bhargav Patel MD Primary Care Provide r Reason for Visit * Reason Comments Med Refill Encounter Details Date Type Department Care Team (Late st Contact Info) Description 09/14/2022 Refill [facility] MED[facility]INE 230 [place], [place] [phone] Wong Garsia MD 230 [place], [place] [phone] Social History Tobacco Use Types Packs/Day Years [...] documented as of this encounter Care Teams Medicare Biller Relationship Specialty Start Date End Date Bhargav Patel MD 230 [place] [address] PCP - General Internal Medicine 10/26/13 documented as of this encounter
--- OUTSIDE RECORDS SUMMARY | 2024-07-21 16:14 | XMS_ITS | Encounter Summary ---
Author Organization [employer] Address 75 [facility] 7t [place] [address] Care Team Providers Care Veterinary Nurse Name Role Phone Bhargav Patel MD Primary Care Provide r Reason for Visit * Reason Comments Med Refill Encounter Details Date Type Department Care Team (Late st Contact Info) Description 09/09/2022 Refill [facility] MED[facility] 230 [place], [place] [phone] Wong Garsia MD 230 [place], [place] [phone] Social History Tobacco Use Types Packs/Day Years [...] documented as of this encounter Care Teams Veterinary Nurse Relationship Specialty Start Date End Date Bhargav Patel MD 230 [place] [address] PCP - General Internal Medicine 10/26/13 documented as of this encounter
--- OUTSIDE RECORDS SUMMARY | 2024-07-21 16:14 | XMS_ITS | Encounter Summary ---
Author Organization [employer] Address 75 [facility] 7t [place] [address] Care Team Providers Care Supervisor Wire Rope Fabrication Name Role Phone Bhargav Patel MD Primary Care Provide r Encounter Details Date Type Department Care Team (Latest Contact Info) Description 08/15/2021 Abstract [facility] CONVERSIONS Dental, Provider, DDS Social History Tobacco Use Types Packs/Day Years [...] on filedocumented in this encounter Care Teams Supervisor Wire Rope Fabrication Relationship Specialty Start Date End Date Bhargav Patel MD [address] [place] [address] PCP - General Internal Medicine 10/26/13 documented as of this encounter
--- OUTSIDE RECORDS SUMMARY | 2024-07-21 16:14 | XMS_ITS | Encounter Summary ---
Author Organization [employer] Address 75 [facility] 7t [place] [address] Care Team Providers Care It Business Process Architect Name Role Phone Bhargav Patel MD Primary Care Provide r Reason for Visit * Reason Onset Date Comments Med Refill 04/17/2023 Encounter Details Date Type Department Care Team ([facility] st Contact Info) Description 04/17/2023 Telephone [facility] MEDICINE 230 [place], [place] [phone] Bhargav Patel MD 230 [place], [place] [phone] Med Refill Social History Tobacco Use Types [...] Telephone Encounter - Kely Jiménez LPN - 04/17/2023 1:41 PM EST Medication pended to PCP. * Telephone Encounter - Dave Lambert - 04/17/2023 11:54 AM EST TC from pt requesting medication refill. Medications needing refill: allopurinol (Zyloprim) 300 MG tablet To be sent to: [facility]/pharmacy #[id number] documented in this encounter Plan of Treatment Not on file documented as of this encounter Visit Diagnoses Not on filedocumented in this encounter Additional Health Concerns Assessment Noted Time PHQ-9 Depression Total Score: 2 09/05/19 23 8:59 AM EDT documented as of this encounter Care Teams It Business Process Architect Relationship Specialty Start Date End Date Bhargav Patel MD [address] [place] [address] PCP - General Internal Medicine 10/26/13 documented as of this encounter
--- OUTSIDE RECORDS SUMMARY | 2024-07-21 16:14 | XMS_ITS | Encounter Summary ---
Author Organization [employer] Address 75 [facility] 7t [place] [address] Care Team Providers Care Consulting Technical Manager Name Role Phone Bhargav Patel MD Primary Care Provide r Reason for Visit * Reason Comments Med Refill Encounter Details Date Type Department Care Team (Late st Contact Info) Description 05/13/2023 Refill [facility] 230 [place], [place] [phone] Deysi Gu MD 230 [place], [place] [phone] Social History Tobacco Use Types Packs/Day Years [...] documented as of this encounter Care Teams Consulting Technical Manager Relationship Specialty Start Date End Date Bhargav Patel MD 230 [place] [address] PCP - General Internal Medicine 10/26/13 documented as of this encounter
== END 2024-07-21 15:24 | disposition home or self-care (01) ==
LOC: HO.HHCX 15:23
PROVIDERS: Visit Provider Internal Medicine
DX: R76.11 Nonspecific reaction to tuberculin skin test without active tuberculosis (principal)
CPT/HCPCS: 71046

== ENCOUNTER → 2024-07-21 15:23 | Outpatient (BNV) | payer OTHER, SELFPAY | PROVIDERS: Visit Provider Radiology Diagnostic Radiology | DX: R76.11 Nonspecific reaction to tuberculin skin test without active tuberculosis (principal) | CPT/HCPCS: 71046 ==

== ENCOUNTER 2024-07-24 08:37 | Outpatient (REF) | payer OTHER, SELFPAY ==
--- OUTSIDE RECORDS SUMMARY | 2024-07-24 08:50 | XMS_ITS | Encounter Summary ---
Author Organization [employer] Address 75 [facility] 7t [place] [address] Care Team Providers Care Physician Interventional Cardiologist Name Role Phone Bhargav Patel MD Primary Care Provide r Reason for Visit * Reason Comments Med Refill Encounter Details Date Type Department Care Team (Late st Contact Info) Description 09/12/2022 Refill [facility] MEDICINE 230 [place], [place] [phone] Wong Garsia MD 230 [place], [place] [phone] Social History Tobacco Use Types Packs/Day Years [...] documented as of this encounter Care Teams Physician Interventional Cardiologist Relationship Specialty Start Date End Date Bhargav Patel MD 230 [place] [address] PCP - General Internal Medicine 10/26/13 documented as of this encounter
--- OUTSIDE RECORDS SUMMARY | 2024-07-24 08:50 | XMS_ITS | Encounter Summary ---
Author Organization [employer] Address 75 [facility] 7t [place] [address] Care Team Providers Care Cemetery Vault Installer Name Role Phone Bhargav Patel MD Primary Care Provide r Reason for Visit * Reason Onset Date Comments Med Refill 04/18/2022 Encounter Details Date Type Department Care Team ([facility] st Contact Info) Description 04/18/2022 Telephone [facility] MEDICINE 230 [place], [place] [phone] Bhargav Patel MD 230 [place] [address] Med Refill Social History Tobacco Use Types [...] med chart refilled and send over to [facility]. documented in this encounter Plan of Treatment Not on file documented as of this encounter Visit Diagnoses Not on filedocumented in this encounter Care Teams Cemetery Vault Installer Relationship Specialty Start Date End Date Bhargav Patel MD [address] [place] [address] PCP - General Internal Medicine 10/26/13 documented as of this encounter
--- OUTSIDE RECORDS SUMMARY | 2024-07-24 08:50 | XMS_ITS | Clinical Summary ---
Author Organization [employer] Address 75 [facility] 7t [place] [address] Care Team Providers Care Adding Machine Mechanic Name Role Phone Bhargav Patel MD Primary [...] Small after fall at work. Evaluated in [facility]. Transfer[place] [facility] but did not require intervention. Assessment & Plan (01/30/2024 2:45 PM EST): Pt here for a follow up. Seen at the ER 10/2023 s/p fall at work. Transferred to [facility] but did not require intervention Seasonal allergies 05/28/2023 Assessment & Plan (05/28/2023 1:30 PM EDT): Not improving despite Zyrtec and Flonase Plan: systems software specialist referral Acute atopic conjunctivitis of both [...] Pt seen by Dr Sarai Lozada Per [facility] [place] no documentation found for treatment when pt had first positive RPR in 1995. They recommend treating with penicillin x 3 weeks. Pt tells me he recalls he was treated as a teenager in [place] Pt's titer went up from 1;1 to 1:8 . 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 They recommend treating with penicillin x 3 weeks. Pt tells me he recalls he was treated as a teenager in [place] Pt's titer went up from 1;1 to 1:8 . Pt completed Bicillin Im x 3 to document successful treatment Will repeat titer Coronary artery disease invo lving match-e-be-nash-she-wish band coronary artery of match-e-be-nash-she-wish band heart without angina pectoris 09/04/2022 Assessment & Plan (07/21/2024 2:57 PM EDT): Hx of NSTEMI Pt is s/p cardiac catheterization on 11/08/20 -RCA 95% occlusion s/p JUSTICE -LAD and LCx are patent -Echo LVEF 60-65%, mild hypokinesis -continue ASA -continue metoprolol tartrate -continue rosurvasatin 40 mg Pt now under the care of [facility], last seen 09/17/2023. 1 year [...] mg Pt now under the care of [facility], last seen 09/2023 Last ECHO 08/2023 [...] mg Pt now under the care of [facility], last seen 04/2023 Continue working on smoking cessation and other risk factor management Assessment & Plan (01/22/2023 10:33 AM EST): Hx of NSTEMI Pt is s/p cardiac catheterization on 11/08/20 -RCA 95% occlusion s/p JUSTICE -LAD and LCx are patent -Echo LVEF 60-65%, mild hypokinesis -continue ASA and plavix -continue metoprolol tartrate -continue rosurvasatin Pt would like to see a different Bobbin Disker since the one he had keeps changing his appointment Will refer to [facility] Continue working on smoking cessation and other risk factor management Assessment & Plan (09/04/2022 8:41 AM EDT): Hx of NSTEMI Pt is s/p cardiac catheterization on 11/08/20 -RCA 95% occlusion s/p JUSTICE -LAD and LCx are patent -Echo LVEF 60-65%, mild hypokinesis -continue ASA and plavix -continue metoprolol tartrate -continue rosurvasatin -follow-up with building superintendent, recently seen -continue working on smoking cessation [...] Continue current regimen 4 months f/u with sc patient has advised to adhere to a [...] Continue current regimen 4 months f/u with sc patient has advised to adhere to a [...] Encounters Date Type Department Care Team Description 07/22/2024 Telephone [facility] MEDICINE [address] [place] [phone] Bhargav Patel MD Results 07/21/2024 3:00 PM EDT Office Visit [address] [address] Bhargav Patel MD Mild emphysema (CMS/HCC) (Primary Dx); Primary hypertension; Coronary artery disease involving match-e-be-nash-she-wish band coronary artery of match-e-be-nash-she-wish band heart without angina pectoris; Mantoux: positive; Hypertriglyceridemia; Routine physical examination 07/21/2024 Travel 07/20/2024 Telephone [facility] 230 [place] [address] Bhargav Patel MD chartprep 07/14/2024 Patient Outreach [facility] [address] [place], [place] [phone] Bhargav Patel MD Pre-visit Planning (SDOH negative, Tobacco screening negative) 07/14/[address] [address] Bhargav Patel MD Appointment Request 05/10/2024 Refill [facility] [address] [place] [address] Kamini Ohara ANP Hyperuricemia 04/29/2024 Orders Only [facility] 230 [place] [address] Radha Kimbrough MD Routine adult health maintenance 04/29/2024 Telephone [facility] 230 [place] [address] Radha Kimbrough MD from Last 3 Months Immunizations Immunization Administration Dates Next Due Hep B, adult [...] your housing situation today? I have tobin robert 09/23/[address] you li [...] Risk 2-dose series) 06/16/1983 COVID-19 Vaccine ( - season) 2023 10/20/2021, 02/09/2021, 04/29/2020, Additional history [...] 8:04 AM EDT Coronary artery disease involving match-e-be-nash-she-wish band coronary artery of match-e-be-nash-she-wish band heart without angina pectoris HM COLONOSCOPY Routine 05/01/2022 HIV 1/2 ANTIGEN/ANTIBODY, FOURTH GENERATION W/RFL Routine 08/08/2021 10:42 AM EDT from Last 3 Months or Most Recently Relevant to Health Maintenance Results * XR Chest 2 Views (07/21/2024 3:23 PM EDT) Anatomical Region Laterality Modality Chest Radiographic Rosy ging 07/21/2024 3:23 PM EDT Narrative 07/21/2024 3:47 PM EDT ?[facility] ?[address] ?[place] [address] ?XRay Report ? Signed ? Patient: Dneis Martinez ?MR#: [id number] ? : 1965 ?Acct:[id number] ? Age/Sex: 59 / M ?ADM Date: 07/21/24 ? Loc: HO.HHCX ? Attending Dr: Bhargav Louise MD ? Ordering Physician: Bhargav Louise MD ?? Date of Service: 07/21/24 ?? Procedure(s): XR chest 2V ?? Accession Number(s): [id number] ? cc: Bhargav Louise MD ? EXAMINATION: [...] signed by Eduard Garcia MD in OV> ?07/21/244 ? DD/ 1523 ? TD/TT: 07/21/24 1538 ? Mud Plant Operator: ? Procedure Note Dondaianater, Image - 07/21/[address] [address] XRay Report Signed Patient: Denis Martinez AMR#: [id number] : 1965Acct:[id number] Age/Sex: 59 / MADM Date: 07/21/24 Loc: HO.HHCX Attending Dr: Bhargav Louise MD Ordering Physician: Bhargav Louise MD Date of Service: 07/21/24 Procedure(s): XR chest 2V Accession Number(s): [id number] cc: Bhargav Louise MD EXAMINATION: XR CHEST [...] 07/21/24 1544 DD/ 1523 TD/TT: 07/21/24 1538 Mud Plant Operator: us Bhargav Wolff MD IMG XR PROCEDURES Fin al Result * (ABNORMAL) Comprehensive Metabolic Panel (05/04/2024 2:13 PM EST) Sodium 145 135 - 145 mmol/L [facility] Potassium 4.4 3.3 - 5.1 mmol/L [facility] Chloride 109(H) 96 - 108 mmol/L [facility] Carbon Dioxide 29 22 - 29 mmol/L [facility] Anion Gap 11(L) 12 - 20 [facility] Urea Nitrogen (BUN) 17(H) 9 - 16 mg/dL [facility] Creatinine, Serum 0.89 0.5 - 1.4 mg/dL [facility] Estimated Glomerular Filt Rate >60 [facility] Comment:Chronic Kidney Disea se: Estimated GFR < 60 mL/min/1.73q2Myhlpm Kidney Disease: Estimated GFR < 15 mL/min/1.73m2 Glucose 79 60 - 115 mg/dL [facility] Calcium 9.4 8.4 - 10.2 mg/dL [facility] Bilirubin, Total 0.7 0.0 - 1.0 mg/dL [facility] Aspartate Amino Transferase 46(H) 5 - 37 U/L [facility] Alanine Aminotransferase 53(H) 0 - 40 U/L [facility] Total Protein 7.1 6.5 - 8.0 g/dL [facility] Albumin Level 3.9 3.5 - 5.0 g/dL [facility] Alkaline Phosphatase 98 39 - 117 U/L [facility] Blood Venous blood specimen / Unknown 05/04/2024 2:13 PM EST 05/04/2024 2:13 PM EST us Radha Kimbrough MD LAB BLOOD ORDERABLES Final Resul t [facility] [address] [place] [address] [phone] * Lipid Panel, Standard (10/07/2023 8:04 AM EDT) Triglycerides 104 <150 mg/dL [facility] Comment:Desirable Triglyceri de: less than 150 mg/dLBorderline High Triglyceride 150-199 mg/dLHigh Triglyceride: 200-499 mg/dLVery High Triglyceride: greater than or equal to 5OO mg/dL Cholesterol 130 <200 mg/dL [facility] Comment:Desirable Cholestero l: less than 200 mg/dLBorderline High Cholesterol: 200-239 mg/dLHigh Cholesterol: greater than 239 mg/dL LDL Cholesterol Calculated 40 <100 mg/dL [facility] Comment:Desirable LDL: less than 100 mg/dLNear Optimal/Above Optimal LDL: 110- 129 mg/dLBorderline High LDL: 130-159 mg/dLHigh LDL: 160-189 mg/dLVery High LDL: greater than or equal to 190 mg/dL HDL Cholesterol 70 >40 mg/dL [facility] Comment:Desirable HDL: great er than 40 mg/dL Note: This HDL assay may give artificially low results in patients with liver disease. Blood Venous blood specimen / Unknown 10/07/2023 8:04 AM EDT 10/07/2023 11:11 AM EDT Bhargav Wolff MD LAB BLOOD ORDERABLES Final Result [facility] [address] [place] [phone] * Colonoscopy (05/01/2022) Pathologist [facility] Colonoscopy Normal Normal Comment:Dr Billy Anaya Historical Provider HEALTH MAINTENANCE Final Result * HIV 1/2 ANTIGEN/ANTIBODY,FOURTH GENERATION W/RFL (08/08/2021 10:42 AM EDT) [facility] HIV-1/2 ANTIGEN AND ANTIBODIES, 4TH GENERATION W/ REFLEX NON-REACT NICK NON-REACT NICK [facility] Comment: HIV-1 antigen and HIV-1/HIV-2 [...] ? For additional information please refer to http://iRule.[employer]/faq/RMI953 (This link is being provided for informational/ educational purposes only.) ? The performance of this assay has not been clinically validated in patients less than 2 years old. ?? 08/08/2021 10:4 2 AM EDT Sarai Lozada MD LAB BLOOD ORDERABLES Final Result Performing Organization Address City/State/[facility] Co id Phone Number [facility] Anywhere [address] from Last 3 Months or Most Recently Relevant to Health Maintenance Insurance UNICARE DENTAL - HSN PARTIAL (MEDICAID) GENERIC TPL Care Teams Adding Machine Mechanic Relationship Specialty Start Date End Date Bhargav Patel MD [address] [place] [address] PCP - General Internal Medicine 10/26/13
--- OUTSIDE RECORDS SUMMARY | 2024-07-24 08:50 | XMS_ITS | Encounter Summary ---
Author Organization [employer] Address 75 [facility] 7t [place] [address] Care Team Providers Care Cardroom Plastic Card Grader Name Role Phone Bhargav Patel MD Primary Care Provide r Reason for Visit * Reason Onset Date Comments Medication Question 05/13/2023 Encounter Details Date Type Department Care Team ([facility] st Contact Info) Description 05/13/2023 Telephone [facility] MEDICINE [address] [place], [place] [phone] Bhargav Patel MD 230 [place], [place] [phone] Medication Question Social History Tobacco Use Types [...] t he electric, gas, oil or water [employer] threatened to shut off services in your [...] 3:05 PM EST Tc from pt stating department store general manager requested to increase dosage for rosuvastatin (Crestor) 5 MG tablet. Pt stated department store general manager faxed over a request to the pharmacy. Please contact pt at [phone] documented in this encounter Plan of Treatment Not on file documented as of this encounter Visit Diagnoses Not on filedocumented in this encounter Additional Health Concerns Assessment Noted Time PHQ-9 Depression Total Score: 2 09/05/19 23 8:59 AM EDT documented as of this encounter Care Teams Cardroom Plastic Card Grader Relationship Specialty Start Date End Date Bhargav Patel MD [address] [place] [address] PCP - General Internal Medicine 10/26/13 documented as of this encounter
--- OUTSIDE RECORDS SUMMARY | 2024-07-24 08:50 | XMS_ITS | Encounter Summary ---
Author Organization [employer] Address 75 [facility] 7t [place] [address] Care Team Providers Care Battery Vent Plug Inserter Name Role Phone Bhargav Patel MD Primary Care Provide r Reason for Visit * Reason Onset Date Comments Results 07/22/2024 Encounter Details Date Type Department Care Team ([facility] st Contact Info) Description 07/22/2024 Telephone [facility] MEDICINE 230 [place], [place] [phone] Bhargav Patel MD 230 [place] [address] Results Social History Tobacco Use Types Packs/Day Years [...] encounter Miscellaneous Notes * Telephone Encounter - Kay Lacey MA - 07/22/2024 1:46 PM EDT Contacted pt in regards to normal chest x ray results. Had to LVM with call back number. LB documented in this encounter Plan of Treatment Not on file documented as of this encounter Visit Diagnoses Not on filedocumented in this encounter Additional Health Concerns Assessment Noted Time PHQ-9 Depression Total Score: 2 10/01/19 24 2:12 PM EDT documented as of this encounter Care Teams Battery Vent Plug Inserter Relationship Specialty Start Date End Date Bhargav Patel MD [address] [place] [address] PCP - General Internal Medicine 10/26/13 documented as of this encounter
--- OUTSIDE RECORDS SUMMARY | 2024-07-24 08:50 | XMS_ITS | Encounter Summary ---
Author Organization [employer] Address [address] [facility] 7t [place] [address] Care Team Providers Care Oxygen Equipment Technician Name Role Phone Bhargav Patel MD Primary Care Provide r Reason for Visit * Reason Onset Date Comments Med Refill 11/14/2023 Encounter Details Date Type Department Care Team ([facility] st Contact Info) Description 11/14/[address] [facility] MEDICINE [address] [place], [place] [phone] Bhargav Patel MD 230 [place], [place] [phone] Med Refill Social History Tobacco Use Types [...] 40 MG tablet To be sent to: [facility]/pharmacy #[id number] - [place], [place] - [address] AT [facility] documented in this encounter Plan of Treatment Not on file documented as of this encounter Visit Diagnoses Not on filedocumented in this encounter Additional Health Concerns Assessment Noted Time PHQ-9 Depression Total Score: 2 10/01/19 24 2:12 PM EDT documented as of this encounter Care Teams Oxygen Equipment Technician Relationship Specialty Start Date End Date Bhargav Patel MD 230 [place] [address] PCP - General Internal Medicine 10/26/13 documented as of this encounter
--- OUTSIDE RECORDS SUMMARY | 2024-07-24 08:50 | XMS_ITS | Encounter Summary ---
Author Organization [employer] Address [address] [facility] 7t [place] [address] Care Team Providers Care Capsule Maker Name Role Phone Bhargav Patel MD Primary Care Provide r Reason for Visit * Reason Onset Date Comments Med Refill 11/07/2023 Encounter Details Date Type Department Care Team ([facility] st Contact Info) Description 11/07/2023 Telephone [facility] MEDICINE 230 [place], [place] [phone] Bhargav Patel MD 230 [place], [place] [phone] Med Refill Social History Tobacco Use Types Packs/Day Years Used Date Smoking Tobacco: Former Cigarettes Passive Smoke Exposure: Past Smokeless Tobacco: Never Depression Answer Date Recorded Patient Health Questionnaire-9 Score 2 10/01/2023 Patient Health Questionnaire-9 Score 2 10/01/2023 Last PHQ-9: Questionnaire Data Not on file 0 10/01/2023 Housing Stability Answer Date Recorded What is your housing situation today? I have tobin jonse 09/23/[address] you li [...] 40 MG tablet To be sent to: [facility]/pharmacy #[id number] - [place], [place] - [address] [facility] documented in this encounter Plan of Treatment Not on file documented as of this encounter Visit Diagnoses Not on filedocumented in this encounter Additional Health Concerns Assessment Noted Time PHQ-9 Depression Total Score: 2 10/01/19 24 2:12 PM EDT documented as of this encounter Care Teams Capsule Maker Relationship Specialty Start Date End Date Bhargav Patel MD 230 [place] [address] PCP - General Internal Medicine 10/26/13 documented as of this encounter
--- OUTSIDE RECORDS SUMMARY | 2024-07-24 08:50 | XMS_ITS | Encounter Summary ---
Author Organization [employer] Address [address] [facility] 7t [place] [address] Care Team Providers Care Label Drier Name Role Phone Bhargav Patel MD Primary Care Provide r Reason for Visit * Reason Comments Med Refill Encounter Details Date Type Department Care Team (Late st Contact Info) Description 05/13/2023 Refill [facility] MEDICINE 230 [place], [place] [phone] Deysi Gu MD 230 [place], [place] [phone] Social History Tobacco Use Types Packs/Day Years [...] documented as of this encounter Care Teams Label Drier Relationship Specialty Start Date End Date Bhargav Patel MD [address] [place] [address] PCP - General Internal Medicine 10/26/13 documented as of this encounter
--- OUTSIDE RECORDS SUMMARY | 2024-07-24 08:50 | XMS_ITS | Continuity of Care Document ---
Author Organization [facility] Address [address] [place] [phone] Phone Care Team Providers Care Director Diabetes Name Role Phone Shannan Hi MD Unavailable [...] Providers Copied on Encounter [facility] , [address] [place] [address], [id number], [place] tel:[phone] [facility] No Information May- 6 Kolton Campbell. [address] [place] [address], [id number] , [place]. tel:[phone] OV - Established Patient [facility] , [address] [place] [address], [id number], [place] tel:[phone] [facility] Incompl Bladder EmptyingBPH W URINARY OBSTRUCTNSlow Urinary StreamIncompl Bladder EmptyingUnc Behav Jovi Prostate Sep-0 2-201 5 Shaji Bravo. [address] [place] [address], [id number] , [place]. tel:[phone] Referring Provider: Gunner Israel, [address] [place], [address]. tel:[phone] [facility] , [address] [place] [address] [address], [place], [id number], [place] tel:[phone] [facility] Redun Prepuce & PhimosisVascular Disorder, PenisUnspec Male Dis-Scrotal/Test/ Perineal Pain Maxi-2 0-201 4 [facility] Shannan. [address] [place] [address], [address], [place], [id number] , [place]. tel:[phone] Referring Provider: Shannan Hi, [address] [place] [address], [address] . tel:[phone] Initial Hosp Care - [facility] , [address] [place] [address] [address], [place], [id number], [place] tel:[phone] [facility] Redun Prepuce & PhimosisUnspec Male Dis-Scrotal/Test/ Perineal PainVascular Disorder, Penis Maxi-0 8-201 4 [facility] Shannan. [address] [place] [address] [address], [place], [id number] , [place]. tel:[phone] Referring Provider: Shannan Hi, [address] [place] [address] [address], [place], [address] . tel:[phone] Family History Family Member Type Diagnosis Age At Onset No Information Payers Payer name Insurance type Covered libertarian ID Authortrinidada giuseppe(s) [place] Medicaid - [facility] [id number] Social History Type Description Quantity Date Captured [...]
--- OUTSIDE RECORDS SUMMARY | 2024-07-24 08:50 | XMS_ITS | Encounter Summary ---
Author Organization [employer] Address 75 [facility] 7t [place] [address] Care Team Providers Care Wire Splicer Name Role Phone Bhargav Patel MD Primary Care Provide r Encounter Details Date Type Department Care Team ([facility] st Contact Info) Description 07/21/2024 3:00 PM EDT Office Visit [facility] MEDICINE 230 [place], [place] [phone] Bhargav Patel MD 230 [place], [place] [phone] Mild emphysema (CMS/HCC) (Primary Dx); Primary hypertension; Coronary artery disease involving [place] coronary artery of [place] heart without angina pectoris; Mantoux: positive; Hypertriglyceridemia; [...] about weight loss. Coronary artery disease involving [place] coronary artery of [place] heart without angina pectoris Hx of NSTEMI Pt is s/p cardiac catheterization on 11/08/20 -RCA 95% occlusion s/p JUSTICE -LAD and LCx are patent -Echo LVEF 60-65%, mild hypokinesis -continue ASA -continue metoprolol tartrate -continue rosurvasatin 40 mg Pt now under the care of [facility] Cardiology, last seen [...] follow up recommended Dr Billy Anaya * Result Encounter Note - Bhargav Wolff MD - 07/21/2024 3:00 PM EDT Please let patient know his Chest x-ray was negative * Assessment & Plan Note - Bhargav [...] EDT Associated Problem(s): Coronary artery disease involving [place] coronary artery of [place] heart without angina pectoris Hx of NSTEMI Pt is s/p cardiac catheterization on 11/08/20 -RCA 95% occlusion s/p JUSTICE -LAD and LCx are patent -Echo LVEF 60-65%, mild hypokinesis -continue ASA -continue metoprolol tartrate -continue rosurvasatin 40 mg Pt now under the care of [facility] Cardiology, last seen [...] PM EDT Narrative 07/21/2024 3:47 PM EDT ?[facility] ?[address] ?[place] [address] ?XRay Report ? Signed ? Patient: Juan,Alonzo ?MR#: [id number] ? : 1965 ?Acct:[id number] ? Age/Sex: 59 / M ?ADM Date: 05/13/25 ? Loc: HO.HHCX ? Attending : Bhargav Louise MD ? Ordering Physician: Bhargav Louise MD ?? Date of Service: 07/21/24 ?? Procedure(s): XR chest 2V ?? Accession Number(s): [id number] ? cc: Bhargav Louise MD ? EXAMINATION: [...] DD/ 1523 ? TD/TT: 07/21/24 1538 ? Filter Press Tender: ? Procedure Note Christine Tabares - 07/21/[address] [address] XRay Report Signed Patient: Denis Martinez [facility]#: [id number] : 1965Acct:[id number] Age/Sex: 59 / MADM Date: 07/21/24 Loc: HO.HHCX Attending Dr: Bhargav Louise MD Ordering Physician: Bhargav Louise MD Date of Service: 07/21/24 Procedure(s): XR chest 2V Accession Number(s): [id number] cc: Bhargav Louise MD EXAMINATION: XR CHEST [...] 07/21/24 1544 DD/ 1523 TD/TT: 07/21/24 1538 Filter Press Tender: us Bhargav Wolff MD IMG XR PROCEDURES Fin al Result documented in this encounter Visit Diagnoses Diagnosis Mild emphysema (CMS/HCC)- Primary Primary hypertension Unspecified essential hypertension Coronary artery disease involving [place] coronary artery of [place] heart without angina pectoris Mantoux: positive Nonspecific reaction to tuberculin skin 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
--- OUTSIDE RECORDS SUMMARY | 2024-07-24 08:50 | XMS_ITS | Encounter Summary ---
Author Organization [employer] Address [address] [facility] 7t [place] [address] Care Team Providers Care Application Systems Engineer Name Role Phone Bhargav Patel MD Primary Care Provide r Encounter Details Date Type Department Care Team ([facility] st Contact Info) Description 09/14/2022 Telephone [facility] MEDICINE 230 [place], [place] [phone] Bhargav Patel MD 230 [place] [address] Social History Tobacco Use Types Packs/Day Years [...] documented as of this encounter Care Teams Application Systems Engineer Relationship Specialty Start Date End Date Bhargav Patel MD 230 [place] [address] PCP - General Internal Medicine 10/26/13 documented as of this encounter
--- OUTSIDE RECORDS SUMMARY | 2024-07-24 08:50 | XMS_ITS | Clinical Summary ---
Author Organization [email or web address] [facility] ity Address [address] [place] [address] Care Team Providers Care Disability Aide Name Role Phone Bhargav Louise MD Primary [...] age to complete this topic Care Teams Disability Aide Relationship Specialty Start Date End Date Bhargav Louise MD [address] [place] [address] [place] [address] PCP - General Internal Medicine 04/10/12
--- OUTSIDE RECORDS SUMMARY | 2024-07-24 08:50 | XMS_ITS | Encounter Summary ---
Author Organization [employer] Address 75 [facility] 7t [place] [address] Care Team Providers Care Switchman Supervisor Name Role Phone Bhargav Patel MD Primary Care Provide r Reason for Visit * Reason Onset Date Comments Med Refill 02/24/2024 Encounter Details Date Type Department Care Team ([facility] st Contact Info) Description 02/24/2024 Telephone [facility] MEDICINE 230 [place], [place] [phone] Bhargav Patel MD 230 [place] [address] Med Refill Social History Tobacco Use Types [...] 11:35 AM EST Medication was sent to [facility] #[id number] on 10/17/23 #90 with 3 refills. * Telephone Encounter - Kenzie Zimmerman - 02/24/2024 11:12 AM EST TC from pt requesting medication refill. Medications needing refill : - Aspirin Low Dose 81 MG EC tablet To be sent to: [facility]/pharmacy #[id number] - [place], [place] - [address] [place] [address] RD. AT [employer] documented in this encounter Plan of Treatment Not on file documented as of this encounter Visit Diagnoses Not on filedocumented in this encounter Additional Health Concerns Assessment Noted Time PHQ-9 Depression Total Score: 2 10/01/19 24 2:12 PM EDT documented as of this encounter Care Teams Switchman Supervisor Relationship Specialty Start Date End Date Bhargav Patel MD 230 [place] [address] PCP - General Internal Medicine 10/26/13 documented as of this encounter
--- OUTSIDE RECORDS SUMMARY | 2024-07-24 08:50 | XMS_ITS | Encounter Summary ---
Author Organization [employer] Address 75 [facility] 7t [place] [address] Care Team Providers Care Farmer And Grazier Name Role Phone Bhargav Patel MD Primary Care Provide r Reason for Visit * Reason Onset Date Comments Med Refill 04/17/2023 Encounter Details Date Type Department Care Team ([facility] st Contact Info) Description 04/17/2023 Telephone [facility] MEDICINE 230 [place], [place] [phone] Bhargav Patel MD 230 [place], [place] [phone] Med Refill Social History Tobacco Use Types [...] 300 MG tablet To be sent to: [facility]/pharmacy #[id number] documented in this encounter Plan of Treatment Not on file documented as of this encounter Visit Diagnoses Not on filedocumented in this encounter Additional Health Concerns Assessment Noted Time PHQ-9 Depression Total Score: 2 09/05/19 23 8:59 AM EDT documented as of this encounter Care Teams Farmer And Grazier Relationship Specialty Start Date End Date Bhargav Patel MD [address] [place] [address] PCP - General Internal Medicine 10/26/13 documented as of this encounter
--- OUTSIDE RECORDS SUMMARY | 2024-07-24 08:50 | XMS_ITS | Encounter Summary ---
Author Organization [employer] Address 75 [facility] 7t [place] [address] Care Team Providers Care Elderly Caregiver Name Role Phone Bhargav Patel MD Primary Care Provide r Encounter Details Date Type Department Care Team (Latest Contact Info) Description 08/15/2021 Abstract [facility] CONVERSIONS Dental, Provider, DDS Social [...] on filedocumented in this encounter Care Teams Elderly Caregiver Relationship Specialty Start Date End Date Bhargav Patel MD [address] [place] [address] PCP - General Internal Medicine 10/26/13 documented as of this encounter
--- OUTSIDE RECORDS SUMMARY | 2024-07-24 08:50 | XMS_ITS | Encounter Summary ---
Author Organization [employer] Address 75 [facility] 7t [place] [address] Care Team Providers Care Restaurant Busser Name Role Phone Bhargav Patel MD Primary Care Provide r Reason for Visit * Reason Onset Date Comments chartprep 07/20/2024 Encounter Details Date Type Department Care Team ([facility] st Contact Info) Description 07/20/2024 Telephone [facility] MEDICINE 230 [place], [place] [phone] Bhargav Patel MD 230 [place] [address] chartprep Social History Tobacco Use Types Packs/Day [...] documented as of this encounter Care Teams Restaurant Busser Relationship Specialty Start Date End Date Bhargav Patel MD [address] [place] [address] PCP - General Internal Medicine 10/26/13 documented as of this encounter
--- OUTSIDE RECORDS SUMMARY | 2024-07-24 08:50 | XMS_ITS | Encounter Summary ---
Author Organization [employer] Address 75 [facility] 7t [place] [address] Care Team Providers Care Mangle Catcher Name Role Phone Bhargav Patel MD Primary [...] documented as of this encounter Care Teams Mangle Catcher Relationship Specialty Start Date End Date Bhargav Patel MD [address] [place] [address] PCP - General Internal Medicine 10/26/13 documented as of this encounter
--- OUTSIDE RECORDS SUMMARY | 2024-07-24 08:50 | XMS_ITS | Encounter Summary ---
Author Organization [employer] Address [address] [place] [address] 7t [place] [address] Care Team Providers Care Fleet Administrative Assistant Name Role Phone Bhargav Patel MD Primary Care Provide r Reason for Visit * Reason Comments Med Refill Encounter Details Date Type Department Care Team (Late st Contact Info) Description 04/24/2022 Refill [facility] MEDICINE 230 [place], [place] [phone] Wong Garsia MD [address] [place] [address] Social History Tobacco Use Types Packs/Day Years [...] on filedocumented in this encounter Care Teams Fleet Administrative Assistant Relationship Specialty Start Date End Date Bhargav Patel MD 230 [place], [place] [phone] PCP - General Internal Medicine 10/26/13 documented as of this encounter
--- OUTSIDE RECORDS SUMMARY | 2024-07-24 08:50 | XMS_ITS | Encounter Summary ---
Author Organization [employer] Address 75 [facility] 7t [place] [address] Care Team Providers Care Member Certification Manager Name Role Phone Bhargav Patel MD Primary Care Provide r Reason for Visit * Reason Comments Med Refill Encounter Details Date Type Department Care Team (Late st Contact Info) Description 09/09/[address] [facility] MEDICINE 230 [place], [place] [phone] Wong Garsia MD 230 [place], [place] [phone] Social History Tobacco Use Types Packs/Day Years [...] documented as of this encounter Care Teams Member Certification Manager Relationship Specialty Start Date End Date Bhargav Patel MD [address] [place] [address] PCP - General Internal Medicine 10/26/13 documented as of this encounter
--- OUTSIDE RECORDS SUMMARY | 2024-07-24 08:50 | XMS_ITS | Encounter Summary ---
Author Organization [employer] Address 75 [facility] 7t [place] [address] Care Team Providers Care Lacquer Mixer Name Role Phone Bhargav Patel MD Primary Care Provide r Encounter Details Date Type Department Care Team ([facility] st Contact Info) Description 07/18/[address] [facility] MEDICINE 230 [place], [place] [phone] Bhargav Patel MD [address] [place], [place] [phone] Social History Tobacco Use Types Packs/Day Years [...] on filedocumented in this encounter Care Teams Lacquer Mixer Relationship Specialty Start Date End Date Bhargav Patel MD [address] [place] [address] PCP - General Internal Medicine 10/26/13 documented as of this encounter
--- OUTSIDE RECORDS SUMMARY | 2024-07-24 08:50 | XMS_ITS | Encounter Summary ---
Author Organization [employer] Address 75 [facility] 7t [place] [address] Care Team Providers Care Trouble Shooter Name Role Phone Bhargav Patel MD Primary Care Provide r Reason for Visit * Reason Comments Med Refill Encounter Details Date Type Department Care Team (Late st Contact Info) Description 09/14/2022 Refill [facility] MEDICINE 230 [place], [place] [phone] Wong Garsia MD 230 [place], [place] [phone] Social History Tobacco Use Types Packs/Day Years [...] documented as of this encounter Care Teams Trouble Shooter Relationship Specialty Start Date End Date Bhargav Patel MD 230 [place] [address] PCP - General Internal Medicine 10/26/13 documented as of this encounter
[2024-07-24 12:06] LABS: Cholesterol 127 mg/dL (<200); HDL Cholesterol 71 mg/dL (>40); LDL Cholesterol Calculated 31 mg/dL (<100); Triglycerides 128 mg/dL (<150)
[2024-07-24 12:36] LABS: ~HepC Num1 0.41 S/CO (0.00-0.79); ~Hepatitis C Antibody Nonreactive (Nonreactive)
== END 2024-07-24 08:38 | disposition home or self-care (01) ==
LOC: HO.HHCL 08:37
PROVIDERS: Visit Provider Internal Medicine
DX: Z00.00 Encounter for general adult medical examination without abnormal findings (principal); Z12.5 Encounter for screening for malignant neoplasm of prostate; E87.1 Hypo-osmolality and hyponatremia
CPT/HCPCS: 36415; 80061; 84153; 86803